=== PATIENT | female | born 1980 | race Two or more races ===

== ENCOUNTER 2019-07-06 09:27 | Inpatient (IN) | payer MEDICAID ==
[~2019-07-06] VITALS: Ht 147.3 cm; Wt 59.9 kg
[2019-07-06] MEDS ORDERED: Omnipaque-300 100ml vial INJ PRN (09:45)
[2019-07-06] MEDS ORDERED: Morphine Sulfate 4mg/ml Inj (IV USE ONLY) IVP ONE ×3 (09:45→16:15)
[2019-07-06 09:56] VITALS: BP 132/76
--- NOTE | 2019-07-06 10:02 | Emergency Room Report ---
History of Present Illness General Chief Complaint: Abdominal Pain Source: Patient Present Illness HPI 38-year-old female presents the ED for evaluation of abdominal pain. Patient notes pain as mid abdomen, sharp, 10 out of 10, nonradiating. Notes multiple episodes of vomiting. Denies fevers or chills. Denies chest pain. Notes history of kidney stones. Denies dysuria or hematuria. Denies flank pain. No other aggravating relieving factors. Denies any other associated symptoms Allergies: Coded Allergies: No Known Allergies (Unverified , 07/06/19) COVID-19 Screening Contact w/high risk pt: No Recent Travel to affected area: No Experienced COVID-19 symptoms?: No Patient History Past Medical History: none Past Surgical History: none Pertinent Family History: none Social History: Denies: smoking, alcohol use, drug use Last Menstrual Period: 06/29/19 Now: No Immunizations: UTD Reviewed Nursing Documentation: PMH: Agreed; PSxH: Agreed Nursing Documentation-PMH Past Medical History: No History, Except For Hx COPD: No - KIDNEY STONES Review of Systems All Other Systems: negative except mentioned in HPI Physical Exam Vital Signs Date Time Temp Pulse Resp B/P (MAP) Pulse Ox O2 Delivery O2 Flow Rate FiO2 07/06/19 09:31 99.0 79 19 135/83 (100) 100 Room Air 07/06/19 09:56 100 Sp02 EP Interpretation: reviewed, normal General Appearance: alert, GCS 15, non-toxic, moderate distress Head: normocephalic, atraumatic Eyes: bilateral eye normal inspection, bilateral eye PERRL ENT: hearing grossly normal, normal pharynx, no angioedema, normal voice Neck: full range of motion, supple/symm/no masses Respiratory: chest non-tender, lungs clear, normal breath sounds, speaking full sentences Cardiovascular #1: regular rate, rhythm, no edema Cardiovascular #2: 2+ carotid (R), 2+ carotid (L), 2+ radial (R), 2+ radial (L) , 2+ dorsalis pedis (R), 2+ dorsalis pedis (L) Gastrointestinal: normal bowel sounds, soft, non-distended, no rebound, tenderness Rectal: deferred Genitourinary: normal inspection, no CVA tenderness Musculoskeletal: back normal, normal range of motion, gait/station normal, non- tender Neurologic: alert, motor strength/tone normal, oriented x3, sensory intact, responsive, speech normal Psychiatric: judgement/insight normal, memory normal, mood/affect normal, no suicidal/homicidal ideation Reflexes: 3+ bicep (R), 3+ bicep (L), 3+ tricep (R), 3+ tricep (L), 3+ knee (R) , 3+ knee (L) Skin: no rash Lymphatic: no adenopathy Medical Decision Making Diagnostic Impression: Primary Impression: Gallstone pancreatitis ER Course Hospital Course 38-year-old female presents to ED with abdominal pain, vomiting Differential diagnoses include: BPH, cystitis, pyelonephritis, kidney stone Clinical course Patient placed on stretcher. potline monitor. After initial history and physical I ordered labs, IV fluids, UA, pain medication and CT scan Labs - no leukocytosis, Hb/Hct stable. electrolytes ok. Lipase > 2000, UA + bacteria CT abdomen and pelvis - pancreatitis with distended gallbladder with stones Given IV fluids. Given pain meds. Given antibiotics. GI and surgery consulted Case discussed with Dr. Montero and he agreed to accept the patient to his service for further care and support I feel this is a highly complex case requiring extensive working including EKG/ Rhythm strip, Xray/CT/US, Blood/urine lab work, repeat exams while in ED, and administration of strong opiates/narcotics for pain control, admission to hospital or close patient follow up. Diagnosis - gallstone pancreatitis Patient admitted to floor in serious condition Labs Test 07/06/19 09:30 07/06/19 09:55 White Blood Count 23.6 K/UL (4.8-10.8) Red Blood Count 4.62 M/UL (4.20-5.40) Hemoglobin 14.5 G/DL (12.0-16.0) Hematocrit 40.8 % (37.0-47.0) Mean Corpuscular Volume 88 FL (80-99) Mean Corpuscular Hemoglobin 31.3 PG (27.0-31.0) Mean Corpuscular Hemoglobin Concent 35.4 G/DL (32.0-36.0) Red Cell Distribution Width 11.0 % (11.6-14.8) Platelet Count 221 K/UL (150-450) Mean Platelet Volume 7.2 FL (6.5-10.1) Neutrophils (%) (Auto) % (45.0-75.0) Lymphocytes (%) (Auto) % (20.0-45.0) Monocytes (%) (Auto) % (1.0-10.0) Eosinophils (%) (Auto) % (0.0-3.0) Basophils (%) (Auto) % (0.0-2.0) Differential Total Cells Counted 100 Neutrophils % (Manual) 75 % (45-75) Lymphocytes % (Manual) 20 % (20-45) Monocytes % (Manual) 5 % (1-10) Eosinophils % (Manual) 0 % (0-3) Basophils % (Manual) 0 % (0-2) Band Neutrophils 0 % (0-8) Platelet Estimate Adequate Platelet Morphology Normal Red Blood Cell Morphology Normal Sodium Level 140 MMOL/L (136-145) Potassium Level 2.9 MMOL/L (3.5-5.1) Chloride Level 104 MMOL/L (98-107) Carbon Dioxide Level 24 MMOL/L (21-32) Anion Gap 12 mmol/L (5-15) Blood Urea Nitrogen 12 mg/dL (7-18) Creatinine 0.7 MG/DL (0.55-1.30) Estimat Glomerular Filtration Rate > 60 mL/min (>60) Glucose Level 173 MG/DL (74-106) Calcium Level 8.9 MG/DL (8.5-10.1) Total Bilirubin 1.0 MG/DL (0.2-1.0) Aspartate Amino Transf (AST/SGOT) 109 U/L (15-37) Alanine Aminotransferase (ALT/SGPT) 83 U/L (12-78) Alkaline Phosphatase 96 U/L (46-116) Total Protein 8.4 G/DL (6.4-8.2) Albumin 4.2 G/DL (3.4-5.0) Globulin 4.2 g/dL Albumin/Globulin Ratio 1.0 (1.0-2.7) Lipase > 2000 U/L (73-393) Human Chorionic Gonadotropin, Qual Negative (NEGATIVE) Urine Color Yellow Urine Appearance Slightly cloudy Urine pH 5 (4.5-8.0) Urine Specific [place] 1.015 (1.005-1.035) Urine Protein 2+ (NEGATIVE) Urine Glucose (UA) Negative (NEGATIVE) Urine Ketones Negative (NEGATIVE) Urine Blood 5+ (NEGATIVE) Urine Nitrite Negative (NEGATIVE) Urine Bilirubin Negative (NEGATIVE) Urine Urobilinogen Normal MG/DL (0.0-1.0) Urine Leukocyte Esterase 1+ (NEGATIVE) Urine RBC Tntc /HPF (0 - 2) Urine WBC 5-10 /HPF (0 - 2) Urine Squamous Epithelial Cells Moderate /LPF (NONE/OCC) Urine Bacteria Many /HPF (NONE) Urine HCG, Qualitative Negative (NEGATIVE) CT/MRI/US Diagnostic Results CT/MRI/US Diagnostic Results : Imaging Test Ordered: CT A/P Impression COMPARISON: None FINDINGS: Lung bases: Lucency and scarring or atelectasis in the left lower lobe. ABDOMEN: Liver: Unremarkable. No mass. Gallbladder and bile ducts: Distended gallbladder with cholelithiasis. Further evaluation could be performed with ultrasound if clinically indicated. Biliary dilatation with stones in the common bile duct. Pancreas: Enlarged pancreas with prominent peripancreatic fluid, concerning for pancreatitis. Question gallstone pancreatitis. Please correlate with lipase levels. No fluid collection or pseudocyst. Spleen: Unremarkable. No splenomegaly. Adrenals: Unremarkable. No mass. Kidneys and ureters: Small hypodensity in the right kidney is too small to definitively characterize. No hydronephrosis or obstructing stone. Stomach and bowel: Portions of the colon are decompressed which limits evaluation. No obstruction. No mucosal thickening. PELVIS: Appendix: Normal appendix. Bladder: Unremarkable. No mass. Reproductive: Unremarkable as visualized. ABDOMEN and PELVIS: Intraperitoneal space: Unremarkable. No free air. No significant fluid collection. Bones/joints: No acute fracture. No dislocation. Soft tissues: Small to moderate fat-containing umbilical hernia. Vasculature: Unremarkable. No abdominal aortic aneurysm. Lymph nodes: Unremarkable. No enlarged lymph nodes. IMPRESSION: 1. Enlarged pancreas with prominent peripancreatic fluid, concerning for pancreatitis. Question gallstone pancreatitis. Please correlate with lipase levels. No fluid collection or pseudocyst. 2. Distended gallbladder with cholelithiasis. Further evaluation could be performed with ultrasound if clinically indicated. 3. Biliary dilatation with stones in the common bile duct. Last Vital Signs Date Time Temp Pulse Resp B/P (MAP) Pulse Ox O2 Delivery O2 Flow Rate FiO2 07/06/19 09:56 99.0 86 19 132/76 100 Room Air 07/06/19 09:56 100 Status: improved Disposition: ADMITTED INPATIENT Condition: Serious Scripts No Active Prescriptions or Reported Meds Calvin Delgadillo MD July 06, 2019 10:02
[2019-07-06 10:13] LABS: ANION GAP 12 mmol/L (5-15); BLOOD UREA NITROGEN 12 mg/dL (7-18); CALCIUM 8.9 MG/DL (8.5-10.1); CARBON DIOXIDE 24 MMOL/L (21-32); CHLORIDE 104 MMOL/L (98-107); CREATININE 0.7 MG/DL (0.55-1.30); POTASSIUM 2.9 MMOL/L (3.5-5.1); SODIUM 140 MMOL/L (136-145)
[2019-07-06 10:14] LABS: HEMATOCRIT 40.8 % (37.0-47.0); HEMOGLOBIN 14.5 G/DL (12.0-16.0); MEAN CORPUSCULAR VOLUME 88 FL (80-99); PLATELET COUNT 221 K/UL (150-450); RED BLOOD COUNT 4.62 M/UL (4.20-5.40)
[2019-07-06 10:23] LABS: ALANINE AMINOTRANSFERASE 83 U/L (12-78); ALBUMIN 4.2 G/DL (3.4-5.0); ALKALINE PHOSPHATASE 96 U/L (46-116); ASPARTATE AMINO TRANSFERASE 109 U/L (15-37)
[2019-07-06] MEDS ORDERED: NS w/KCl 40mEq 1,000 ML IV SCH (10:30)
[2019-07-06 10:51] LABS: BILIRUBIN, URINE NEGATIVE (NEGATIVE); GLUCOSE, URINE (UA) NEGATIVE (NEGATIVE); KETONES,URINE NEGATIVE (NEGATIVE); NITRITE,URINE NEGATIVE (NEGATIVE); PH,URINE 5 (4.5-8.0); PROTEIN,URINE 2+ (NEGATIVE); UROBILINOGEN,URINE NORMAL MG/DL (0.0-1.0)
[2019-07-06 10:52] LABS: APPEARANCE,URINE SLIGHTLY CLOUDY; COLOR,URINE YELLOW; LEUKOCYTE ESTERASE ,URINE 1+ (NEGATIVE)
[2019-07-06 11:03] LABS: WHITE BLOOD COUNT 23.6 K/UL (4.8-10.8)
[2019-07-06] MEDS ORDERED: cefTRIAXone 1 GM in NS 55 ML IVPB ONE (11:15)
[2019-07-06] MEDS ORDERED: Ketorolac 30mg Inj IV ONE (11:15)
--- NOTE | 2019-07-06 11:45 | Diagnostic Imaging Report ---
EXAM: CT Abdomen and Pelvis With Intravenous Contrast CLINICAL HISTORY: ABD PAIN TECHNIQUE: Axial computed tomography images of the abdomen and pelvis with intravenous contrast. CTDI is 3.9 mGy and DLP is 202.5 mGy-cm. One or more of the following dose reduction techniques were used: automated exposure control, adjustment of the mA and/or kV according to patient size, use of iterative reconstruction technique. COMPARISON: None FINDINGS: Lung bases: Lucency and scarring or atelectasis in the left lower lobe. ABDOMEN: Liver: Unremarkable. No mass. Gallbladder and bile ducts: Distended gallbladder with cholelithiasis. Further evaluation could be performed with ultrasound if clinically indicated. Biliary dilatation with stones in the common bile duct. Pancreas: Enlarged pancreas with prominent peripancreatic fluid, concerning for pancreatitis. Question gallstone pancreatitis. Please correlate with lipase levels. No fluid collection or pseudocyst. Spleen: Unremarkable. No splenomegaly. Adrenals: Unremarkable. No mass. Kidneys and ureters: Small hypodensity in the right kidney is too small to definitively characterize. No hydronephrosis or obstructing stone. Stomach and bowel: Portions of the colon are decompressed which limits evaluation. No obstruction. No mucosal thickening. PELVIS: Appendix: Normal appendix. Bladder: Unremarkable. No mass. Reproductive: Unremarkable as visualized. ABDOMEN and PELVIS: Intraperitoneal space: Unremarkable. No free air. No significant fluid collection. Bones/joints: No acute fracture. No dislocation. Soft tissues: Small to moderate fat-containing umbilical hernia. Vasculature: Unremarkable. No abdominal aortic aneurysm. Lymph nodes: Unremarkable. No enlarged lymph nodes. IMPRESSION: 1. Enlarged pancreas with prominent peripancreatic fluid, concerning for pancreatitis. Question gallstone pancreatitis. Please correlate with lipase levels. No fluid collection or pseudocyst. 2. Distended gallbladder with cholelithiasis. Further evaluation could be performed with ultrasound if clinically indicated. 3. Biliary dilatation with stones in the common bile duct.
[2019-07-06] MEDS ORDERED: Piperacillin/Tazobactam 3.375 GM in NS 110 ML IVPB ONE (12:15)
[2019-07-06 13:00] VITALS: BP 127/87
[2019-07-06 16:55] VITALS: BP 122/85
[2019-07-06] MEDS: Pantoprazole Inj IVP SCH (17:30)
[2019-07-06] MEDS: D5 1/2NS w/KCl 20mEq 1,000 ML IV SCH ×2 (17:30→22:35)
[2019-07-06] MEDS ORDERED: HYDROmorphone 1mg/ml Carpuject IVP PRN ×2 (17:30→21:30)
[2019-07-06] MEDS ORDERED: Acetaminophen 650 MG SUPP RECTAL PRN (17:30)
[2019-07-06 20:00] VITALS: BP 118/80
[2019-07-06] MEDS: Piperacillin/Tazobactam 3.375 GM in NS 110 ML IVPB SCH (20:45)
[2019-07-06] MEDS ORDERED: D5 1/2NS 1,000 ML IV SCH (21:15)
[2019-07-06] MEDS ORDERED: Morphine Sulfate 2mg/ml Inj(IV/IM USE ONLY) IVP PRN (21:15)
--- NOTE | 2019-07-06 21:44 | Consultation ---
DATE OF CONSULTATION: 07/06/2019 REASON FOR CONSULTATION: Abdominal pain. REQUESTING PHYSICIAN: ER physician. HISTORY OF PRESENT ILLNESS: This is a 38-year-old female who presented to emergency room complaining of about 8 days of abdominal pain. She stated that pain is located at the epigastrium. Initially, it was at epigastrium and even right upper quadrant, but it has moved more to the left upper quadrant. This pain has been associated with nausea and vomiting. She denied any fever, cough, dysuria, or frequency. She stated that she has been having upper abdominal pain for about 4 years. She denies any history of jaundice. She denies any history of alcohol abuse. PAST MEDICAL HISTORY: She denied allergies, asthma, diabetes, hypertension, or cardiac or renal diseases. SURGERIES: None. MEDICATIONS: None. SOCIAL HISTORY: The patient is a 38-year-old female who is , mother of 2 children. 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 Denies smoking or drinking. REVIEW OF SYSTEMS: Noncontributory. PHYSICAL EXAMINATION: GENERAL: The patient appeared to be a well-developed, well-nourished 38-year-old female, lying on the gurney, complaining of abdominal pain. HEENT: Head is normocephalic and atraumatic. Eyes, pupils are equal, round, and reactive to light. 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 Mouth is clear. NECK: There is no palpable thyromegaly or adenopathy. CHEST: Clear to auscultation and percussion. HEART: There is no gallop or murmur. S1 and S2 are within normal limits. ABDOMEN: Soft and flat with tenderness allover, which is more pronounced at the upper abdomen, especially at the left upper quadrant. There is no rigidity. Bowel sounds are present, and there is no palpable organomegaly. GENITALIA: Deferred. EXTREMITIES: Within normal limits. LABORATORY DATA: CBC has shown a WBC of 23,000 with mild left shift. Chemistry has shown lipase over 2000. A CAT scan of the abdomen has shown cholelithiasis and pancreatitis. Besides, it has been reported that the patient had stones in the common bile duct. ASSESSMENT: Gall stone pancreatitis. RECOMMENDATION: At this time, the patient required to be admitted. NPO, on IV fluids. She requires a GI consultation and ERCP with removal of the common bile duct stones, and after the lipase and amylase return to normal and the common bile duct has been cleared, she will require to have a laparoscopy cholecystectomy. This has been explained to the patient. She understood. Rio Mcmillan M.D. DR: MOE JOB#: [id number] CC:
[2019-07-06] MEDS: HYDROmorphone 1mg/ml Carpuject IVP PRN (22:02)
[2019-07-07] VITALS: BP 128/79
[2019-07-07] MEDS: HYDROmorphone 1mg/ml Carpuject IVP PRN ×5 (02:32→20:34)
[2019-07-07 04:00] VITALS: BP 105/68
[2019-07-07] MEDS: Piperacillin/Tazobactam 3.375 GM in NS 110 ML IVPB SCH ×3 (04:27→20:33)
[2019-07-07 05:40] LABS: BASOPHILS % (AUTO) 0.2 % (0.0-2.0); HEMATOCRIT 37.5 % (37.0-47.0); HEMOGLOBIN 13.2 G/DL (12.0-16.0); LYMPHOCYTES % (AUTO) 12.7 % (20.0-45.0); MEAN CORPUSCULAR VOLUME 89 FL (80-99); MONOCYTES % (AUTO) 7.2 % (1.0-10.0); NEUTROPHILS % (AUTO) 79.9 % (45.0-75.0); PLATELET COUNT 182 K/UL (150-450); RED BLOOD COUNT 4.22 M/UL (4.20-5.40); RED CELL DISTRIBUTION WIDTH 11.6 % (11.6-14.8); WHITE BLOOD COUNT 12.7 K/UL (4.8-10.8)
[2019-07-07 05:53] LABS: ALANINE AMINOTRANSFERASE 186 U/L (12-78); ALBUMIN 3.1 G/DL (3.4-5.0); ALBUMIN/GLOBULIN RATIO 0.8 (1.0-2.7); ALKALINE PHOSPHATASE 84 U/L (46-116); ANION GAP 10 mmol/L (5-15); ASPARTATE AMINO TRANSFERASE 113 U/L (15-37); BLOOD UREA NITROGEN 9 mg/dL (7-18); CALCIUM 7.6 MG/DL (8.5-10.1); CARBON DIOXIDE 24 MMOL/L (21-32); CHLORIDE 110 MMOL/L (98-107); CREATININE 0.7 MG/DL (0.55-1.30); POTASSIUM 4.1 MMOL/L (3.5-5.1); SODIUM 144 MMOL/L (136-145)
[2019-07-07 06:13] LABS: AMYLASE 513 U/L (25-115)
--- NOTE | 2019-07-07 07:33 | General Progress Note ---
Assessment/Plan Assessment/Plan: gallstone pancreatitis CBD stones based on CT npo ivf pain control abd us ERCP in am surg consult Subjective ROS Limited/Unobtainable: Yes Allergies: Coded Allergies: No Known Allergies (Unverified , 07/06/19) Objective Last 24 Hour Vital Signs Date Time Temp Pulse Resp B/P (MAP) Pulse Ox O2 Delivery O2 Flow Rate FiO2 07/07/19 04:00 98.2 70 18 105/68 (80) 100 07/07/19 03:02 98.0 07/07/19 00:00 98.0 71 18 128/79 (95) 95 07/06/19 21:00 Room Air 07/06/19 20:00 98.0 71 18 118/80 (93) 95 07/06/19 18:18 Room Air 07/06/19 17:35 98.6 78 18 138/78 99 Room Air 07/06/19 16:55 99.0 81 16 122/85 98 Room Air 07/06/19 16:46 99.0 07/06/19 13:00 99.0 82 18 127/87 99 Room Air 07/06/19 11:38 99.0 07/06/19 11:38 99.0 07/06/19 10:15 99.0 07/06/19 09:56 99.0 86 19 132/76 100 Room Air 07/06/19 09:56 86 19 Room Air 100 07/06/19 09:31 99.0 79 19 135/83 (100) 100 Room Air Intake and Output 07/06/19 07/07/19 19:00 07:00 Intake Total 0 ml Output Total 10 ml Balance 0 ml -10 ml Intake Oral 0 ml Output Emesis 10 ml # Voids 4 Laboratory Tests 07/06/19 09:30: White Blood Count 23.6*H, Red Blood Count 4.62, Hemoglobin 14.5, Hematocrit 40.8 , Mean Corpuscular Volume 88, Mean Corpuscular Hemoglobin 31.3H, Mean Corpuscular Hemoglobin Concent 35.4, Red Cell Distribution Width 11.0L, Platelet Count 221, Mean Platelet Volume 7.2, Neutrophils (%) (Auto) , Lymphocytes (%) (Auto) , Monocytes (%) (Auto) , Eosinophils (%) (Auto) , Basophils (%) (Auto) , Differential Total Cells Counted 100, Neutrophils % ( Manual) 75, Lymphocytes % (Manual) 20, Monocytes % (Manual) 5, Eosinophils % ( Manual) 0, Basophils % (Manual) 0, Band Neutrophils 0, Platelet Estimate Adequate, Platelet Morphology Normal, Red Blood Cell Morphology Normal, Sodium Level 140, Potassium Level 2.9L, Chloride Level 104, Carbon Dioxide Level 24, Anion Gap 12, Blood Urea Nitrogen 12, Creatinine 0.7, Estimat Glomerular Filtration Rate > 60, Glucose Level 173H, Calcium Level 8.9, Total Bilirubin 1.0 , Aspartate Amino Transf (AST/SGOT) 109H, Alanine Aminotransferase (ALT/SGPT) 83H, Alkaline Phosphatase 96, Total Protein 8.4H, Albumin 4.2, Globulin 4.2, Albumin/Globulin Ratio 1.0, Lipase > 2000H, Human Chorionic Gonadotropin, Qual Negative 07/06/19 09:55: Urine Color Yellow, Urine Appearance Slightly cloudy, Urine pH 5, Urine Specific [place] 1.015, Urine Protein 2+H, Urine Glucose (UA) Negative, Urine Ketones Negative, Urine Blood 5+H, Urine Nitrite Negative, Urine Bilirubin Negative, Urine Urobilinogen Normal, Urine Leukocyte Esterase 1+H, Urine RBC TntcH, Urine WBC 5-10H, Urine Squamous Epithelial Cells ModerateH, Urine Bacteria ManyH, Urine HCG, Qualitative Negative 07/07/19 04:45: White Blood Count 12.7H, Red Blood Count 4.22, Hemoglobin 13.2, Hematocrit 37.5 , Mean Corpuscular Volume 89, Mean Corpuscular Hemoglobin 31.2H, Mean Corpuscular Hemoglobin Concent 35.2, Red Cell Distribution Width 11.6, Platelet Count 182, Mean Platelet Volume 7.8, Neutrophils (%) (Auto) 79.9H, Lymphocytes ( %) (Auto) 12.7L, Monocytes (%) (Auto) 7.2, Eosinophils (%) (Auto) 0.0, Basophils (%) (Auto) 0.2, Sodium Level 144, Potassium Level 4.1, Chloride Level 110H, Carbon Dioxide Level 24, Anion Gap 10, Blood Urea Nitrogen 9, Creatinine 0.7, Estimat Glomerular Filtration Rate > 60, Glucose Level 140H, Calcium Level 7.6L, Total Bilirubin 1.0, Aspartate Amino Transf (AST/SGOT) 113H, Alanine Aminotransferase (ALT/SGPT) 186H, Alkaline Phosphatase 84, Total Protein 6.9, Albumin 3.1L, Globulin 3.8, Albumin/Globulin Ratio 0.8L, Amylase Level 513*H Height (Feet): 4 Height (Inches): 10.00 Weight (Pounds): 117 General Appearance: alert EENT: normal ENT inspection Neck: normal alignment Cardiovascular: normal rate Respiratory/Chest: decreased breath sounds Abdomen: normal bowel sounds, non tender, soft Extremities: non-tender Jus Cancino MD July 07, 2019 07:33
[2019-07-07] MEDS: D5 1/2NS w/KCl 20mEq 1,000 ML IV SCH ×2 (07:55→16:13)
[2019-07-07 08:00] VITALS: BP 152/70
[2019-07-07] MEDS: Pantoprazole Inj IVP SCH (08:16)
--- NOTE | 2019-07-07 10:12 | General Surgery Progress Note ---
General Surgery-Progress Note Subjective Symptoms: improved Objective Last 24 Hour Vital Signs Date Time Temp Pulse Resp B/P (MAP) Pulse Ox O2 Delivery O2 Flow Rate FiO2 07/07/19 08:34 Room Air 07/07/19 08:00 98.9 74 18 152/70 (97) 97 07/07/19 04:00 98.2 70 18 105/68 (80) 100 07/07/19 03:02 98.0 07/07/19 00:00 98.0 71 18 128/79 (95) 95 07/06/19 21:00 Room Air 07/06/19 20:00 98.0 71 18 118/80 (93) 95 07/06/19 18:18 Room Air 07/06/19 17:35 98.6 78 18 138/78 99 Room Air 07/06/19 16:55 99.0 81 16 122/85 98 Room Air 07/06/19 16:46 99.0 07/06/19 13:00 99.0 82 18 127/87 99 Room Air 07/06/19 11:38 99.0 07/06/19 11:38 99.0 07/06/19 10:15 99.0 I&O Intake and Output 07/06/19 07/07/19 19:00 07:00 Intake Total 0 ml Output Total 10 ml Balance 0 ml -10 ml Intake Oral 0 ml Output Emesis 10 ml # Voids 4 Respiratory: clear Abdomen: soft, flat, tenderness, present bowel sounds Extremities: no tenderness Laboratory Tests Test 07/07/19 04:45 White Blood Count 12.7 K/UL (4.8-10.8) H Red Blood Count 4.22 M/UL (4.20-5.40) Hemoglobin 13.2 G/DL (12.0-16.0) Hematocrit 37.5 % (37.0-47.0) Mean Corpuscular Volume 89 FL (80-99) Mean Corpuscular Hemoglobin 31.2 PG (27.0-31.0) H Mean Corpuscular Hemoglobin Concent 35.2 G/DL (32.0-36.0) Red Cell Distribution Width 11.6 % (11.6-14.8) Platelet Count 182 K/UL (150-450) Mean Platelet Volume 7.8 FL (6.5-10.1) Neutrophils (%) (Auto) 79.9 % (45.0-75.0) H Lymphocytes (%) (Auto) 12.7 % (20.0-45.0) L Monocytes (%) (Auto) 7.2 % (1.0-10.0) Eosinophils (%) (Auto) 0.0 % (0.0-3.0) Basophils (%) (Auto) 0.2 % (0.0-2.0) Sodium Level 144 MMOL/L (136-145) Potassium Level 4.1 MMOL/L (3.5-5.1) Chloride Level 110 MMOL/L (98-107) H Carbon Dioxide Level 24 MMOL/L (21-32) Anion Gap 10 mmol/L (5-15) Blood Urea Nitrogen 9 mg/dL (7-18) Creatinine 0.7 MG/DL (0.55-1.30) Estimat Glomerular Filtration Rate > 60 mL/min (>60) Glucose Level 140 MG/DL (74-106) H Calcium Level 7.6 MG/DL (8.5-10.1) L Total Bilirubin 1.0 MG/DL (0.2-1.0) Aspartate Amino Transf (AST/SGOT) 113 U/L (15-37) H Alanine Aminotransferase (ALT/SGPT) 186 U/L (12-78) H Alkaline Phosphatase 84 U/L (46-116) Total Protein 6.9 G/DL (6.4-8.2) Albumin 3.1 G/DL (3.4-5.0) L Globulin 3.8 g/dL Albumin/Globulin Ratio 0.8 (1.0-2.7) L Amylase Level 513 U/L (25-115) *H Assessment Additional Comments gallstone pancreatitis Plan Additional Comments continue npo ERCP in AM possible lap belinda on monday Rio Mcmillan MD July 07, 2019 10:12
--- NOTE | 2019-07-07 11:17 | Diagnostic Imaging Report ---
EXAM: US Abdomen Complete CLINICAL HISTORY: ABD PAIN TECHNIQUE: Real-time ultrasound of the abdomen with image documentation. COMPARISON: CT abdomen/pelvis on 07/06/2019 FINDINGS: Liver: Unremarkable. No mass. No intrahepatic bile duct dilation. Gallbladder: Cholelithiasis within a distended gallbladder. Mild gallbladder wall thickening and pericholecystic edema. Common bile duct: Dilated common bile duct measuring 10.3 mm. Stone in the common bile duct measuring 1 cm. Pancreas: Pancreas is enlarged with peripancreatic fluid, concerning for acute pancreatitis. Kidneys: Right kidney measures 11.9 cm in length. No hydronephrosis or stone. Spleen: Unremarkable. No splenomegaly. Aorta: Visualized portions of the aorta are unremarkable. Inferior vena cava: Visualized portions of the IVC are unremarkable. Other vasculature: Patent main portal vein with normal direction of flow. Free fluid: Ascites in the right upper quadrant. IMPRESSION: 1. Pancreas is enlarged with peripancreatic fluid, concerning for acute pancreatitis. 2. Cholelithiasis within a distended gallbladder. Mild gallbladder wall thickening and pericholecystic edema. Findings are concerning for acute cholecystitis. 3. Dilated common bile duct measuring 10.3 mm. Stone in the common bile duct measuring 1 cm. 4. Ascites in the right upper quadrant.
[2019-07-07 11:54] VITALS: BP 117/77
--- NOTE | 2019-07-07 12:51 | Consultation ---
History of Present Illness General Date patient seen: July 07, 2019 Chief Complaint: Abdominal Pain Present Illness HPI 38 y/o F with hx of nephrolithiasis presented to ED on 07/05 with 8 days of abd pain, initially was epigastric and RUQ and move to LUQ; pain described as sharp , 10/10 intensity, non radiating. Associated symptoms: nausea and vomiting. Denied fever, cough, dysuria, frequency, chest pain, hematuria. Allergies: Coded Allergies: No Known Allergies (Unverified , 07/06/19) Medication History No Active Prescriptions or Reported Meds Patient History Healthcare decision maker Resuscitation status Advanced Directive on File Patient History Narrative Pmhx: as above Shx: The patient is a 38-year-old female who is , mother of 2 children. 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 Denies smoking or drinking. Fhmx: non contributory Review of Systems All Other Systems: negative except mentioned in HPI Physical Exam Physical Exam Narrative GENERAL: The patient appeared to be a well-developed, well-nourished HEENT: Head is normocephalic and atraumatic. Eyes, pupils are equal, round, and reactive to light. 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 Mouth is clear. NECK: There is no palpable thyromegaly or adenopathy. CHEST: Clear to auscultation and percussion. HEART: There is no gallop or murmur. S1 and S2 are within normal limits. ABDOMEN: Soft and flat with tenderness allover, which is more pronounced at the upper abdomen, especially at the left upper quadrant. There is no rigidity. Bowel sounds are present, and there is no palpable organomegaly. EXTREMITIES: Within normal limits. Last 24 Hour Vital Signs Date Time Temp Pulse Resp B/P (MAP) Pulse Ox O2 Delivery O2 Flow Rate FiO2 07/07/19 11:54 98.8 83 18 117/77 (90) 96 07/07/19 08:34 Room Air 07/07/19 08:00 98.9 74 18 152/70 (97) 97 07/07/19 04:00 98.2 70 18 105/68 (80) 100 07/07/19 03:02 98.0 07/07/19 00:00 98.0 71 18 128/79 (95) 95 07/06/19 21:00 Room Air 07/06/19 20:00 98.0 71 18 118/80 (93) 95 07/06/19 18:18 Room Air 07/06/19 17:35 98.6 78 18 138/78 99 Room Air 07/06/19 16:55 99.0 81 16 122/85 98 Room Air 07/06/19 16:46 99.0 07/06/19 13:00 99.0 82 18 127/87 99 Room Air Intake and Output 07/06/19 07/07/19 19:00 07:00 Intake Total 0 ml Output Total 10 ml Balance 0 ml -10 ml Intake Oral 0 ml Output Emesis 10 ml # Voids 4 Laboratory Tests Test 07/07/19 04:45 White Blood Count 12.7 K/UL (4.8-10.8) H Red Blood Count 4.22 M/UL (4.20-5.40) Hemoglobin 13.2 G/DL (12.0-16.0) Hematocrit 37.5 % (37.0-47.0) Mean Corpuscular Volume 89 FL (80-99) Mean Corpuscular Hemoglobin 31.2 PG (27.0-31.0) H Mean Corpuscular Hemoglobin Concent 35.2 G/DL (32.0-36.0) Red Cell Distribution Width 11.6 % (11.6-14.8) Platelet Count 182 K/UL (150-450) Mean Platelet Volume 7.8 FL (6.5-10.1) Neutrophils (%) (Auto) 79.9 % (45.0-75.0) H Lymphocytes (%) (Auto) 12.7 % (20.0-45.0) L Monocytes (%) (Auto) 7.2 % (1.0-10.0) Eosinophils (%) (Auto) 0.0 % (0.0-3.0) Basophils (%) (Auto) 0.2 % (0.0-2.0) Sodium Level 144 MMOL/L (136-145) Potassium Level 4.1 MMOL/L (3.5-5.1) Chloride Level 110 MMOL/L (98-107) H Carbon Dioxide Level 24 MMOL/L (21-32) Anion Gap 10 mmol/L (5-15) Blood Urea Nitrogen 9 mg/dL (7-18) Creatinine 0.7 MG/DL (0.55-1.30) Estimat Glomerular Filtration Rate > 60 mL/min (>60) Glucose Level 140 MG/DL (74-106) H Calcium Level 7.6 MG/DL (8.5-10.1) L Total Bilirubin 1.0 MG/DL (0.2-1.0) Aspartate Amino Transf (AST/SGOT) 113 U/L (15-37) H Alanine Aminotransferase (ALT/SGPT) 186 U/L (12-78) H Alkaline Phosphatase 84 U/L (46-116) Total Protein 6.9 G/DL (6.4-8.2) Albumin 3.1 G/DL (3.4-5.0) L Globulin 3.8 g/dL Albumin/Globulin Ratio 0.8 (1.0-2.7) L Amylase Level 513 U/L (25-115) *H Height (Feet): 4 Height (Inches): 10.00 Weight (Pounds): 117 Medications Current Medications Medications (Trade) Dose Ordered Sig/Najma Route PRN Reason Start Time Stop Time Status Last Admin Dose Admin Acetaminophen (Tylenol) 650 mg Q4H PRN RECTAL Mild Pain (Pain Scale 1-3) 07/06/19 17:30 08/05/19 17:29 Dextrose/ Electrolytes 1,000 ml @ 125 mls/hr Q8H IV 07/07/19 08:00 08/06/19 07:59 07/07/19 07:55 Hydromorphone HCl (Dilaudid) 1 mg Q4H PRN IVP For Pain 07/06/19 21:30 07/13/19 17:29 07/07/19 12:15 Ondansetron HCl (Zofran) 4 mg Q4H PRN IVP Nausea & Vomiting 07/06/19 21:00 08/05/19 20:59 07/06/19 20:58 Pantoprazole (Protonix) 40 mg DAILY IVP 07/06/19 17:30 08/05/19 17:29 07/07/19 08:16 Piperacillin Sod/ Tazobactam Sod 3.375 gm/Sodium Chloride 110 ml @ 27.5 mls/hr Q8H IVPB 07/06/19 20:30 07/13/19 20:29 07/07/19 12:14 Assessment/Plan Assessment/Plan: Abx: Zosyn 5/2- Ceftriaxone x1 5/2 Assessment: Gallstone pancreatitis Acute cholecystitis Choledocholithiasis -CT abd/p 1. Enlarged pancreas with prominent peripancreatic fluid, concerning for pancreatitis. Question gallstone pancreatitis. Please correlate with lipase levels. No fluid collection or pseudocyst.Distended gallbladder with cholelithiasis. Further evaluation could be performed with ultrasound if clinically indicated. Biliary dilatation with stones in the common bile duct. -Abd US: Pancreas is enlarged with peripancreatic fluid, concerning for acute pancreatitis. Cholelithiasis within a distended gallbladder. Mild gallbladder wall thickening and pericholecystic edema. Findings are concerning for acute cholecystitis. Dilated common bile duct measuring 10.3 mm. Stone in the common bile duct measuring 1 cm. Ascites in the right upper quadrant. Afebrile Leukocytosis, improving -5/2 u/a wbc 5-10, nit neg, leuk +1; Ucx p Elevated LFTs, worsening nephrolithiasis Plan: -Continue empiric Zosyn #2 -f/u cx -Monitor CBC/CMP, temperatures -GI and Sx f/u -aspiration precautions Thank you for consulting [facility]. Will continue to follow along with you. Discussed with PREMA. Michelle Sr M.D. July 07, 2019 12:51
[2019-07-07 16:00] VITALS: BP 105/76
--- NOTE | 2019-07-07 16:00 | History and Physical Report ---
DATE OF ADMISSION: 07/06/2019 DATE AND TIME SEEN: 07/07/2019 at 9 a.m. CONSULTANTS: 1. Jus Cancino M.D. 2. Rio Mcmillan M.D. CHIEF COMPLAINT: Abdominal pain, nausea, vomiting, pancreatitis, gallstone. BRIEF HISTORY: This is a 38-year-old female who lives at home presents with 7 days increased abdominal pain, yesterday became quite excruciating, slight nausea, vomiting, came to [place] ER, diagnosed with gallstone pancreatitis, and admitted to medical floor. Currently, calm in bed, getting ultrasound. Pain in the abdomen about 6/10. No complaint. REVIEW OF SYSTEMS: No chest pain. No shortness of breath. Slight nausea, vomiting. No diarrhea. PAST MEDICAL HISTORY: Nothing. PAST SURGICAL HISTORY: Nothing. MEDICATIONS: Include hydromorphone, Zosyn, pantoprazole, Tylenol, morphine, potassium, famotidine. ALLERGIES: Denies. SOCIAL HISTORY: No smoking. No alcohol. No intravenous drug abuse. FAMILY HISTORY: Noncontributory. PHYSICAL EXAMINATION: GENERAL: Calm in bed, oriented x3, no acute distress. VITAL SIGNS: Temperature is 98 degrees, pulse 74, respirations 18, blood pressure 152/70. CARDIOVASCULAR: Distant without murmur. LUNGS: Distant, clear. ABDOMEN: Bowel sound positive. Slightly tender. No guarding. No rigidity. No rebound. EXTREMITIES: No cyanosis, clubbing, edema. NEUROLOGIC: Patient moves all extremities, slightly weak. LABORATORY AND DIAGNOSTIC DATA: Labs at this time show white count 12.7, hemoglobin and hematocrit 13/37, platelets 182. Chloride 110, glucose 140. AST, ALT 113/186. Albumin 3.1. Amylase is 513. Lipase is greater in 1999. Urinalysis showed 2+ protein, 5+ blood, 1+ leukocyte esterase. ASSESSMENT: 1. Gallstone pancreatitis. 2. Malnutrition. 3. UTI. PLAN: 1. Antibiotics per Infectious Disease. 2. NPO. 3. IV fluids. 4. Dietary followup. 5. Pain control. 6. Possible Surgery. 7. GI followup. 8. We will add ID Dr. Enriqueta rehman. Anderson Montero D.O. DR: JOSE JOB#: [id number] CC:
[2019-07-07 20:00] VITALS: BP 113/72
[2019-07-08] VITALS (12 sets, daily range): BP systolic 103–137; BP diastolic 70–88
[2019-07-08] MEDS: HYDROmorphone 1mg/ml Carpuject IVP PRN ×5 (01:20→20:09)
[2019-07-08] MEDS: Piperacillin/Tazobactam 3.375 GM in NS 110 ML IVPB SCH ×3 (03:52→20:09)
[2019-07-08] MEDS: D5 1/2NS w/KCl 20mEq 1,000 ML IV SCH ×3 (03:53→17:23)
[2019-07-08 06:34] LABS: BASOPHILS % (AUTO) 0.4 % (0.0-2.0); EOSINOPHILS % (AUTO) 0.6 % (0.0-3.0); HEMATOCRIT 31.6 % (37.0-47.0); HEMOGLOBIN 11.4 G/DL (12.0-16.0); LYMPHOCYTES % (AUTO) 18.8 % (20.0-45.0); MEAN CORPUSCULAR VOLUME 89 FL (80-99); MONOCYTES % (AUTO) 9.1 % (1.0-10.0); NEUTROPHILS % (AUTO) 71.1 % (45.0-75.0); PLATELET COUNT 140 K/UL (150-450); RED BLOOD COUNT 3.55 M/UL (4.20-5.40); WHITE BLOOD COUNT 11.6 K/UL (4.8-10.8)
[2019-07-08 07:01] LABS: ALANINE AMINOTRANSFERASE 117 U/L (12-78); ALBUMIN 2.8 G/DL (3.4-5.0); ALBUMIN/GLOBULIN RATIO 0.8 (1.0-2.7); ALKALINE PHOSPHATASE 71 U/L (46-116); AMYLASE 325 U/L (25-115); ANION GAP 3 mmol/L (5-15); ASPARTATE AMINO TRANSFERASE 41 U/L (15-37); BILIRUBIN,TOTAL 0.9 MG/DL (0.2-1.0); BLOOD UREA NITROGEN 3 mg/dL (7-18); CALCIUM 8.1 MG/DL (8.5-10.1); CARBON DIOXIDE 29 MMOL/L (21-32); CHLORIDE 105 MMOL/L (98-107); CREATININE 0.5 MG/DL (0.55-1.30); POTASSIUM 3.9 MMOL/L (3.5-5.1); SODIUM 137 MMOL/L (136-145)
[2019-07-08] MEDS ORDERED: Iothalamate Meglumine 60% 30ML INJ ONE ×2 (07:55→09:22)
[2019-07-08] MEDS ORDERED: fentaNYL 100 mcg/2 mL IV ONE (08:44)
[2019-07-08] MEDS ORDERED: Midazolam 2mg/2ml Inj ONE (08:44)
--- NOTE | 2019-07-08 08:55 | Anethesia Preoperative Eval ---
Anesthesia Pre-op PMH/ROS General Date of Evaluation: July 08, 2019 Time of Evaluation: 09:00 Anesthesiologist: yuval ASA Score: ASA 2 Mallampati Score Class I : Soft palate, uvula, fauces, pillars visible Class II: Soft palate, uvula, fauces visible Class III: Soft palate, base of uvula visible Class IV: Only hard plate visible Mallampati Classification: Class II Surgeon: Barak Diagnosis: gallstones Surgical Procedure: ercp Anesthesia History: none Family History: no anesthesia problems Allergies: Coded Allergies: No Known Allergies (Unverified , 07/06/19) Medications: see eMAR Patient NPO?: Yes NPO Date: July 08, 2019 NPO Time: 0000 Past Medical History Cardiovascular: Denies: HTN, CAD, [place], valve dz, arrhythmia, other Pulmonary: Denies: asthma, COPD, BECCA, other Gastrointestinal/Genitourinary: Denies: GERD, CRI, ESRD, other Neurologic/Psychiatric: Denies: dementia, CVA, depression/anxiety, TIA, other Endocrine: Denies: DM, hypothyroidism, steroids, other HEENT: Denies: cataract (L), cataract (R), glaucoma, [place] (L), [place] (R), other Hematology/Immune: Denies: anemia, DVT, bleeding disorder, other Musculoskeletal/Integumentary: Denies: OA, RA, DJD, DDD, edema, other PMH Narrative: pancreatitis Anesthesia Pre-op Phys. Exam Physician Exam Last Vital Signs Date Time Temp Pulse Resp B/P (MAP) Pulse Ox O2 Delivery O2 Flow Rate FiO2 07/08/19 04:00 99.4 89 18 103/70 (81) 95 07/07/19 21:00 Room Air 07/06/19 09:56 100 Constitutional: NAD Neurologic: CN 2-12 intact Cardiovascular: RRR Respiratory: CTA Gastrointestinal: S/NT/ND Airway Exam Mallampati Classification 2 Mallampati Score: Class II MO: full ROM: full Dentures: no upper, no lower Anesthesia Pre-op A/P Labs Hematology Test 07/08/19 05:00 White Blood Count 11.6 K/UL (4.8-10.8) H Red Blood Count 3.55 M/UL (4.20-5.40) L Hemoglobin 11.4 G/DL (12.0-16.0) L Hematocrit 31.6 % (37.0-47.0) L Mean Corpuscular Volume 89 FL (80-99) Mean Corpuscular Hemoglobin 32.0 PG (27.0-31.0) H Mean Corpuscular Hemoglobin Concent 35.9 G/DL (32.0-36.0) Red Cell Distribution Width 11.0 % (11.6-14.8) L Platelet Count 140 K/UL (150-450) L Mean Platelet Volume 7.9 FL (6.5-10.1) Neutrophils (%) (Auto) 71.1 % (45.0-75.0) Lymphocytes (%) (Auto) 18.8 % (20.0-45.0) L Monocytes (%) (Auto) 9.1 % (1.0-10.0) Eosinophils (%) (Auto) 0.6 % (0.0-3.0) Basophils (%) (Auto) 0.4 % (0.0-2.0) Chemistry Test 07/08/19 05:00 Sodium Level 137 MMOL/L (136-145) Potassium Level 3.9 MMOL/L (3.5-5.1) Chloride Level 105 MMOL/L (98-107) Carbon Dioxide Level 29 MMOL/L (21-32) Anion Gap 3 mmol/L (5-15) L Blood Urea Nitrogen 3 mg/dL (7-18) L Creatinine 0.5 MG/DL (0.55-1.30) L Estimat Glomerular Filtration Rate > 60 mL/min (>60) Glucose Level 97 MG/DL (74-106) Calcium Level 8.1 MG/DL (8.5-10.1) L Total Bilirubin 0.9 MG/DL (0.2-1.0) Aspartate Amino Transf (AST/SGOT) 41 U/L (15-37) H Alanine Aminotransferase (ALT/SGPT) 117 U/L (12-78) H Alkaline Phosphatase 71 U/L (46-116) Total Protein 6.3 G/DL (6.4-8.2) L Albumin 2.8 G/DL (3.4-5.0) L Globulin 3.5 g/dL Albumin/Globulin Ratio 0.8 (1.0-2.7) L Amylase Level 325 U/L (25-115) H Lipase 1008 U/L (73-393) H Studies Pre-op Studies: EKG Risk Assessment & Plan Plan: mac/general Status Change Before Surgery: No Pre-Antibiotics Drug: none Radha Jonas CRNA July 08, 2019 08:55
[2019-07-08] MEDS ORDERED: LR 1000ml ONE (09:00)
[2019-07-08] MEDS: Pantoprazole Inj IVP SCH (09:00)
[2019-07-08] MEDS ORDERED: Lidocaine 1% MPF 10mg/ml 5ml ONE (09:00)
[2019-07-08] MEDS ORDERED: Propofol 200mg/20ml IV ONE (09:00)
--- NOTE | 2019-07-08 09:04 | Pre-Procedure Note/Attestation ---
Pre-Procedure Note/Attestation Complete Prior to Procedure Planned Procedure: not applicable Procedure Narrative: ercp Indications for Procedure Pre-Operative Diagnosis: cbd stones Attestation I attest that I discussed the nature of the procedure; its benefits; risks and complications; and alternatives (and the risks and benefits of such alternatives ), prior to the procedure, with the patient (or the patient's legal direct customer service representative). I attest that, if there was a reasonable possibility of needing a blood transfusion, the patient (or the patient's legal direct customer service representative) was given the [facility] standardized written summary, pursuant to the Driss Lizzy Blood Safety Act ([place] Health and Safety Code # 1645, as amended). I attest that I re-evaluated the patient just prior to the surgery and that there has been no change in the patient's H&P, except as documented below: Jus Cancino MD July 08, 2019 09:04
[2019-07-08] MEDS ORDERED: NS 500ML IVPB ONE (09:05)
--- NOTE | 2019-07-08 09:33 | Endoscopy Procedure Note ---
Endoscopy Procedure Note General Indication for Procedure: choledocholithiasis Procedures Performed: ERCP Operative Findings/Diagnosis: same Specimen: none Pt Tolerated Procedure Well: Yes Estimated Blood Loss: none Anesthesia Anesthesiologist: escobar Anesthesia: MAC Inserted Devices Implant(s) used?: No GI Core Measures 50 yrs or older w/o bx or poly: Not Applicable 10yrs. F/U recommended: Not Applicable Jus Cancino MD July 08, 2019 09:33
--- NOTE | 2019-07-08 09:56 | General Progress Note ---
Assessment/Plan Problem List: (1) Abdominal pain ICD Codes: R10.9 - Unspecified abdominal pain SNOMED: 01083474 (2) UTI (urinary tract infection) ICD Codes: N39.0 - Urinary tract infection, site not specified SNOMED: 79670371 (3) Nausea & vomiting ICD Codes: R11.2 - Nausea with vomiting, unspecified SNOMED: 28710137 (4) Gallstone pancreatitis ICD Codes: K85.10 - Biliary acute pancreatitis without necrosis or infection SNOMED: 30298843 Status: unchanged Assessment/Plan: gi sx f/u abx ercp pain control cbc bmp am Subjective Constitutional: Reports: weakness Allergies: Coded Allergies: No Known Allergies (Unverified , 07/06/19) All Systems: reviewed and negative except above Subjective calm in bed Objective Last 24 Hour Vital Signs Date Time Temp Pulse Resp B/P (MAP) Pulse Ox O2 Delivery O2 Flow Rate FiO2 07/08/19 09:45 96 18 106/75 100 Simple Mask 3 07/08/19 09:40 101 17 107/72 100 Simple Mask 3 07/08/19 09:35 97.7 104 19 108/74 100 Simple Mask 3 07/08/19 08:00 98.7 93 18 109/71 (84) 93 07/08/19 07:50 Room Air 07/08/19 04:00 99.4 89 18 103/70 (81) 95 07/08/19 00:00 98.6 82 17 117/76 (90) 94 07/07/19 21:00 Room Air 07/07/19 20:00 98.6 93 17 113/72 (86) 95 07/07/19 16:00 99.6 18 105/76 (86) 98 07/07/19 11:54 98.8 83 18 117/77 (90) 96 Intake and Output 07/07/19 07/08/19 19:00 07:00 Intake Total 735.0 ml Balance 735.0 ml IV Total 735.0 ml # Voids 3 Laboratory Tests 07/08/19 05:00: White Blood Count 11.6H, Red Blood Count 3.55L, Hemoglobin 11.4L, Hematocrit 31.6L, Mean Corpuscular Volume 89, Mean Corpuscular Hemoglobin 32.0H, Mean Corpuscular Hemoglobin Concent 35.9, Red Cell Distribution Width 11.0L, Platelet Count 140L, Mean Platelet Volume 7.9, Neutrophils (%) (Auto) 71.1, Lymphocytes (%) (Auto) 18.8L, Monocytes (%) (Auto) 9.1, Eosinophils (%) (Auto) 0.6, Basophils (%) (Auto) 0.4, Sodium Level 137, Potassium Level 3.9, Chloride Level 105, Carbon Dioxide Level 29, Anion Gap 3L, Blood Urea Nitrogen 3L, Creatinine 0.5L, Estimat Glomerular Filtration Rate > 60, Glucose Level 97, Calcium Level 8.1L, Total Bilirubin 0.9, Aspartate Amino Transf (AST/SGOT) 41H, Alanine Aminotransferase (ALT/SGPT) 117H, Alkaline Phosphatase 71, Total Protein 6.3L, Albumin 2.8L, Globulin 3.5, Albumin/Globulin Ratio 0.8L, Amylase Level 325H, Lipase 1008H Height (Feet): 4 Height (Inches): 11.00 Weight (Pounds): 117 General Appearance: lethargic EENT: normal ENT inspection Neck: normal alignment Cardiovascular: normal rate, regular rhythm Respiratory/Chest: lungs clear, normal breath sounds Abdomen: normal bowel sounds, non tender, soft Extremities: normal inspection Edema: no edema noted Arm (L), no edema noted Arm (R), no edema noted Leg (L), no edema noted Leg (R), no edema noted Pedal (L), no edema noted Pedal (R), no edema noted Generalized Skin: normal pigmentation Anderson Montero DO July 08, 2019 09:56
--- NOTE | 2019-07-08 10:04 | Immediate Post-Op Evaluation ---
Immediate Post-Op Evalulation Immediate Post-Op Evalulation Procedure: ERCP Date of Evaluation: July 08, 2019 Time of Evaluation: 09:45 IV Fluids: 300 Blood Pressure Systolic: 108 Blood Pressure Diastolic: 71 Pulse Rate: 100 Respiratory Rate: 14 O2 Sat by Pulse Oximetry: 98 Temperature (Fahrenheit): 97.3 Nausea: No Vomiting: No Complications none Patient Status: awake, reacts, patent Hydration Status: adequate Drug: none Radha Jonas CRNA July 08, 2019 10:04
--- NOTE | 2019-07-08 10:05 | 48 Hour Post Anesthesia Eval ---
Post Anesthesia Evaluation Procedure: ERCP Date of Evaluation: July 08, 2019 Time of Evaluation: 10:05 Blood Pressure Systolic: 115 0: 70 Pulse Rate: 50 Respiratory Rate: 14 Temperature (Fahrenheit): 97.3 O2 Sat by Pulse Oximetry: 98 Airway: patent Nausea: No Vomiting: No Hydration Status: adequate Cardiopulmonary Status: stable Mental Status/LOC: patient returned to baseline Post-Anesthesia Complications: none Follow-up care needed: N/A Radha Jonas CRNA July 08, 2019 10:05
[2019-07-08] MEDS ORDERED: fentaNYL 100 mcg/2 mL IV PRN (10:15)
--- NOTE | 2019-07-08 11:49 | General Surgery Progress Note ---
General Surgery-Progress Note Subjective Symptoms: improved Objective Last 24 Hour Vital Signs Date Time Temp Pulse Resp B/P (MAP) Pulse Ox O2 Delivery O2 Flow Rate FiO2 07/08/19 11:33 98.8 93 18 108/74 (85) 93 07/08/19 10:09 97.8 94 18 126/88 94 Room Air 07/08/19 10:05 50 14 98 07/08/19 10:04 100 14 98 07/08/19 10:00 99 18 137/87 96 Room Air 07/08/19 09:55 96 19 117/80 100 Simple Mask 3 07/08/19 09:45 96 18 106/75 100 Simple Mask 3 07/08/19 09:40 101 17 107/72 100 Simple Mask 3 07/08/19 09:35 97.7 104 19 108/74 100 Simple Mask 3 07/08/19 08:00 98.7 93 18 109/71 (84) 93 07/08/19 07:50 Room Air 07/08/19 04:00 99.4 89 18 103/70 (81) 95 07/08/19 00:00 98.6 82 17 117/76 (90) 94 07/07/19 21:00 Room Air 07/07/19 20:00 98.6 93 17 113/72 (86) 95 07/07/19 16:00 99.6 18 105/76 (86) 98 07/07/19 11:54 98.8 83 18 117/77 (90) 96 I&O Intake and Output 07/07/19 07/08/19 19:00 07:00 Intake Total 735.0 ml Balance 735.0 ml IV Total 735.0 ml # Voids 3 Respiratory: clear Abdomen: soft, flat, tenderness, present bowel sounds Extremities: no tenderness Laboratory Tests Test 07/08/19 05:00 White Blood Count 11.6 K/UL (4.8-10.8) H Red Blood Count 3.55 M/UL (4.20-5.40) L Hemoglobin 11.4 G/DL (12.0-16.0) L Hematocrit 31.6 % (37.0-47.0) L Mean Corpuscular Volume 89 FL (80-99) Mean Corpuscular Hemoglobin 32.0 PG (27.0-31.0) H Mean Corpuscular Hemoglobin Concent 35.9 G/DL (32.0-36.0) Red Cell Distribution Width 11.0 % (11.6-14.8) L Platelet Count 140 K/UL (150-450) L Mean Platelet Volume 7.9 FL (6.5-10.1) Neutrophils (%) (Auto) 71.1 % (45.0-75.0) Lymphocytes (%) (Auto) 18.8 % (20.0-45.0) L Monocytes (%) (Auto) 9.1 % (1.0-10.0) Eosinophils (%) (Auto) 0.6 % (0.0-3.0) Basophils (%) (Auto) 0.4 % (0.0-2.0) Sodium Level 137 MMOL/L (136-145) Potassium Level 3.9 MMOL/L (3.5-5.1) Chloride Level 105 MMOL/L (98-107) Carbon Dioxide Level 29 MMOL/L (21-32) Anion Gap 3 mmol/L (5-15) L Blood Urea Nitrogen 3 mg/dL (7-18) L Creatinine 0.5 MG/DL (0.55-1.30) L Estimat Glomerular Filtration Rate > 60 mL/min (>60) Glucose Level 97 MG/DL (74-106) Calcium Level 8.1 MG/DL (8.5-10.1) L Total Bilirubin 0.9 MG/DL (0.2-1.0) Aspartate Amino Transf (AST/SGOT) 41 U/L (15-37) H Alanine Aminotransferase (ALT/SGPT) 117 U/L (12-78) H Alkaline Phosphatase 71 U/L (46-116) Total Protein 6.3 G/DL (6.4-8.2) L Albumin 2.8 G/DL (3.4-5.0) L Globulin 3.5 g/dL Albumin/Globulin Ratio 0.8 (1.0-2.7) L Amylase Level 325 U/L (25-115) H Lipase 1008 U/L (73-393) H Assessment Additional Comments gallstone pancreatitis Plan Additional Comments Cory Chin in AM Rio Mcmillan MD July 08, 2019 11:49
--- NOTE | 2019-07-08 12:07 | Diagnostic Imaging Report ---
INDICATION: Pain, intraoperative TECHNIQUE: Intraoperative imaging Fluoroscopy time: 70.4 seconds Total dose: [id number] mGym2 Total number of images: 3 COMPARISON: None FINDINGS: Intraoperative images during ERCP demonstrate opacification of the extrahepatic and central intrahepatic bile ducts, which are minimally ectatic IMPRESSION: Intraoperative imaging, as described
--- NOTE | 2019-07-08 13:53 | Infectious Diseases Prog Note ---
Assessment/Plan Assessment/Plan Assessment: Gallstone pancreatitis Acute cholecystitis Choledocholithiasis -07/07 ERCP: Intraoperative images during ERCP demonstrate opacification of the extrahepatic and central intrahepatic bile ducts, which are minimally ectatic -CT abd/p 1. Enlarged pancreas with prominent peripancreatic fluid, concerning for pancreatitis. Question gallstone pancreatitis. Please correlate with lipase levels. No fluid collection or pseudocyst.Distended gallbladder with cholelithiasis. Further evaluation could be performed with ultrasound if clinically indicated. Biliary dilatation with stones in the common bile duct. -Abd US: Pancreas is enlarged with peripancreatic fluid, concerning for acute pancreatitis. Cholelithiasis within a distended gallbladder. Mild gallbladder wall thickening and pericholecystic edema. Findings are concerning for acute cholecystitis. Dilated common bile duct measuring 10.3 mm. Stone in the common bile duct measuring 1 cm. Ascites in the right upper quadrant. Afebrile Leukocytosis, improving -/ u/a wbc 5-10, nit neg, leuk +1; Ucx 10-20k GNR Elevated LFTs, worsened, now improving nephrolithiasis Plan: -Continue empiric Zosyn #3 -/ SP Ceftriaxone x1 -f/u cx -Monitor CBC/CMP, temperatures -GI and Sx f/u -aspiration precautions Thank you for consulting [facility]. Will continue to follow along with you. Discussed with RN. Subjective Allergies: Coded Allergies: No Known Allergies (Unverified , 07/06/19) Subjective afebrile wbc improving ERCP done today Objective Vital Signs Last 24 Hour Vital Signs Date Time Temp Pulse Resp B/P (MAP) Pulse Ox O2 Delivery O2 Flow Rate FiO2 07/08/19 11:33 98.8 93 18 108/74 (85) 93 07/08/19 10:09 97.8 94 18 126/88 94 Room Air 07/08/19 10:05 50 14 98 07/08/19 10:04 100 14 98 07/08/19 10:00 99 18 137/87 96 Room Air 07/08/19 09:55 96 19 117/80 100 Simple Mask 3 07/08/19 09:45 96 18 106/75 100 Simple Mask 3 07/08/19 09:40 101 17 107/72 100 Simple Mask 3 07/08/19 09:35 97.7 104 19 108/74 100 Simple Mask 3 07/08/19 08:00 98.7 93 18 109/71 (84) 93 07/08/19 07:50 Room Air 07/08/19 04:00 99.4 89 18 103/70 (81) 95 07/08/19 00:00 98.6 82 17 117/76 (90) 94 07/07/19 21:00 Room Air 07/07/19 20:00 98.6 93 17 113/72 (86) 95 07/07/19 16:00 99.6 18 105/76 (86) 98 Height (Feet): 4 Height (Inches): 11.00 Weight (Pounds): 117 Objective GENERAL: The patient appeared to be a well-developed, well-nourished HEENT: Head is normocephalic and atraumatic. Eyes, pupils are equal, round, and reactive to light. 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 Mouth is clear. NECK: There is no palpable thyromegaly or adenopathy. CHEST: Clear to auscultation and percussion. HEART: There is no gallop or murmur. S1 and S2 are within normal limits. ABDOMEN: Soft and flat with tenderness allover, which is more pronounced at the upper abdomen, especially at the left upper quadrant. There is no rigidity. Bowel sounds are present, and there is no palpable organomegaly. EXTREMITIES: Within normal limits. Microbiology Date/Time Source Procedure Growth Status 07/06/19 09:55 Urine,Clean Catch Urine Culture - Preliminary Gram Negative Bacillus 1 Resulted Laboratory Tests Test 07/08/19 05:00 White Blood Count 11.6 K/UL (4.8-10.8) H Red Blood Count 3.55 M/UL (4.20-5.40) L Hemoglobin 11.4 G/DL (12.0-16.0) L Hematocrit 31.6 % (37.0-47.0) L Mean Corpuscular Volume 89 FL (80-99) Mean Corpuscular Hemoglobin 32.0 PG (27.0-31.0) H Mean Corpuscular Hemoglobin Concent 35.9 G/DL (32.0-36.0) Red Cell Distribution Width 11.0 % (11.6-14.8) L Platelet Count 140 K/UL (150-450) L Mean Platelet Volume 7.9 FL (6.5-10.1) Neutrophils (%) (Auto) 71.1 % (45.0-75.0) Lymphocytes (%) (Auto) 18.8 % (20.0-45.0) L Monocytes (%) (Auto) 9.1 % (1.0-10.0) Eosinophils (%) (Auto) 0.6 % (0.0-3.0) Basophils (%) (Auto) 0.4 % (0.0-2.0) Sodium Level 137 MMOL/L (136-145) Potassium Level 3.9 MMOL/L (3.5-5.1) Chloride Level 105 MMOL/L (98-107) Carbon Dioxide Level 29 MMOL/L (21-32) Anion Gap 3 mmol/L (5-15) L Blood Urea Nitrogen 3 mg/dL (7-18) L Creatinine 0.5 MG/DL (0.55-1.30) L Estimat Glomerular Filtration Rate > 60 mL/min (>60) Glucose Level 97 MG/DL (74-106) Calcium Level 8.1 MG/DL (8.5-10.1) L Total Bilirubin 0.9 MG/DL (0.2-1.0) Aspartate Amino Transf (AST/SGOT) 41 U/L (15-37) H Alanine Aminotransferase (ALT/SGPT) 117 U/L (12-78) H Alkaline Phosphatase 71 U/L (46-116) Total Protein 6.3 G/DL (6.4-8.2) L Albumin 2.8 G/DL (3.4-5.0) L Globulin 3.5 g/dL Albumin/Globulin Ratio 0.8 (1.0-2.7) L Amylase Level 325 U/L (25-115) H Lipase 1008 U/L (73-393) H Current Medications Medications (Trade) Dose Ordered Sig/Najma Route PRN Reason Start Time Stop Time Status Last Admin Dose Admin Acetaminophen (Tylenol) 650 mg Q4H PRN RECTAL Mild Pain (Pain Scale 1-3) 07/06/19 17:30 08/05/19 17:29 Dextrose/ Electrolytes 1,000 ml @ 125 mls/hr Q8H IV 07/07/19 08:00 08/06/19 07:59 07/08/19 03:53 Hydromorphone HCl (Dilaudid) 1 mg Q3H PRN IVP For Pain 07/07/19 17:00 07/14/19 16:59 07/08/19 12:17 Ondansetron HCl (Zofran) 4 mg Q4H PRN IVP Nausea & Vomiting 07/06/19 21:00 08/05/19 20:59 07/07/19 23:04 Pantoprazole (Protonix) 40 mg DAILY IVP 07/06/19 17:30 08/05/19 17:29 07/07/19 08:16 Piperacillin Sod/ Tazobactam Sod 3.375 gm/Sodium Chloride 110 ml @ 27.5 mls/hr Q8H IVPB 07/06/19 20:30 07/13/19 20:29 07/08/19 12:23 Michelle Sr M.D. July 08, 2019 13:53
--- NOTE | 2019-07-08 14:04 | Anethesia Preoperative Eval ---
Anesthesia Pre-op PMH/ROS General Date of Evaluation: July 08, 2019 Time of Evaluation: 11:09 Anesthesiologist: [place] ASA Score: ASA 2 Mallampati Score Class I : Soft palate, uvula, fauces, pillars visible Class II: Soft palate, uvula, fauces visible Class III: Soft palate, base of uvula visible Class IV: Only hard plate visible Mallampati Classification: Class II Surgeon: Hipolito Diagnosis: Gallstone Pancreatitis Surgical Procedure: Laparoscopic Cholecystectomy Anesthesia History: none Family History: no anesthesia problems Allergies: Coded Allergies: No Known Allergies (Unverified , 07/06/19) Medications: see eMAR Patient NPO?: Yes NPO Date: July 08, 2019 NPO Time: 0000 Past Medical History Gastrointestinal/Genitourinary: Reports: other - Pancreatitis PSxH Narrative: ERCP Anesthesia Pre-op Phys. Exam Physician Exam Last Vital Signs Date Time Temp Pulse Resp B/P (MAP) Pulse Ox O2 Delivery O2 Flow Rate FiO2 07/08/19 11:33 98.8 93 18 108/74 (85) 93 07/08/19 10:09 Room Air 07/08/19 09:55 3 07/06/19 09:56 100 Constitutional: NAD Neurologic: CN 2-12 intact Cardiovascular: RRR Respiratory: CTA Gastrointestinal: S/NT/ND Airway Exam Mallampati Score: Class II MO: full ROM: full Teeth: intact Anesthesia Pre-op A/P Labs Hematology Test 07/08/19 05:00 White Blood Count 11.6 K/UL (4.8-10.8) H Red Blood Count 3.55 M/UL (4.20-5.40) L Hemoglobin 11.4 G/DL (12.0-16.0) L Hematocrit 31.6 % (37.0-47.0) L Mean Corpuscular Volume 89 FL (80-99) Mean Corpuscular Hemoglobin 32.0 PG (27.0-31.0) H Mean Corpuscular Hemoglobin Concent 35.9 G/DL (32.0-36.0) Red Cell Distribution Width 11.0 % (11.6-14.8) L Platelet Count 140 K/UL (150-450) L Mean Platelet Volume 7.9 FL (6.5-10.1) Neutrophils (%) (Auto) 71.1 % (45.0-75.0) Lymphocytes (%) (Auto) 18.8 % (20.0-45.0) L Monocytes (%) (Auto) 9.1 % (1.0-10.0) Eosinophils (%) (Auto) 0.6 % (0.0-3.0) Basophils (%) (Auto) 0.4 % (0.0-2.0) Chemistry Test 07/08/19 05:00 Sodium Level 137 MMOL/L (136-145) Potassium Level 3.9 MMOL/L (3.5-5.1) Chloride Level 105 MMOL/L (98-107) Carbon Dioxide Level 29 MMOL/L (21-32) Anion Gap 3 mmol/L (5-15) L Blood Urea Nitrogen 3 mg/dL (7-18) L Creatinine 0.5 MG/DL (0.55-1.30) L Estimat Glomerular Filtration Rate > 60 mL/min (>60) Glucose Level 97 MG/DL (74-106) Calcium Level 8.1 MG/DL (8.5-10.1) L Total Bilirubin 0.9 MG/DL (0.2-1.0) Aspartate Amino Transf (AST/SGOT) 41 U/L (15-37) H Alanine Aminotransferase (ALT/SGPT) 117 U/L (12-78) H Alkaline Phosphatase 71 U/L (46-116) Total Protein 6.3 G/DL (6.4-8.2) L Albumin 2.8 G/DL (3.4-5.0) L Globulin 3.5 g/dL Albumin/Globulin Ratio 0.8 (1.0-2.7) L Amylase Level 325 U/L (25-115) H Lipase 1008 U/L (73-393) H Risk Assessment & Plan Assessment: ASA 2 Plan: GA Pre-Antibiotics Drug: Moises Powell MD July 08, 2019 14:04
--- NOTE | 2019-07-08 16:44 | Procedure Note ---
DATE OF PROCEDURE: 07/08/2019 SURGEON: Jus Cancino M.D. PROCEDURE: ERCP with sphincterotomy, stone removal. ANESTHESIA: Per VP MARKETING, Radha. INSTRUMENT: Olympus adult ERCP scope. INDICATION: Choledocholithiasis. REASON FOR PROCEDURE: The procedure, risks, benefits, and possible consequences, including hemorrhage, aspiration, perforation and infection, and alternative treatments, were explained to the patient/legal guardian by Dr. Jus Cancino and the patient/legal guardian understood and accepted these risks. PROCEDURE IN DETAIL: After informed consent was obtained and the patient was adequately sedated, ERCP scope was advanced from the mouth into second portion of the duodenum. Using a sphincterotome, common bile duct was selectively cannulated. Initial cholangiogram showed dilated common bile duct with multiple filling defects in the common bile duct suggestive of stones. Then over a guidewire using sphincterotome 95% sphincterotomy was performed. A 9 mm balloon was used to sweep the duct multiple times and removed about 8 stones yellowish color from distal common bile duct. Post stone removal, balloon cholangiogram showed no further filling defects and flow of contrast from common bile to the duodenum was excellent, so no stent was placed. The patient tolerated the procedure very well without any complication. SUMMARY OF FINDINGS: About eight CBD stones removed. RECOMMENDATIONS: 1. Follow labs. 2. The patient most likely will need a cholecystectomy when pancreatitis is improved. I want to thank, Dr. Anderson Montero, for this kind referral. Jus Cancino M.D. DR: [email or web address] JOB#: [id number] CC: Anderson Montero D.O.
[2019-07-09] VITALS (13 sets, daily range): BP systolic 103–134; BP diastolic 68–89
[2019-07-09] MEDS: D5 1/2NS w/KCl 20mEq 1,000 ML IV SCH ×4 (01:35→14:33)
[2019-07-09] MEDS: HYDROmorphone 1mg/ml Carpuject IVP PRN ×4 (01:52→21:25)
[2019-07-09] MEDS: Piperacillin/Tazobactam 3.375 GM in NS 110 ML IVPB SCH ×3 (04:22→21:24)
[2019-07-09 06:45] LABS: BASOPHILS % (AUTO) 0.7 % (0.0-2.0); EOSINOPHILS % (AUTO) 2.7 % (0.0-3.0); HEMATOCRIT 29.9 % (37.0-47.0); HEMOGLOBIN 10.6 G/DL (12.0-16.0); LYMPHOCYTES % (AUTO) 25.1 % (20.0-45.0); MEAN CORPUSCULAR VOLUME 89 FL (80-99); MONOCYTES % (AUTO) 9.4 % (1.0-10.0); NEUTROPHILS % (AUTO) 62.2 % (45.0-75.0); PLATELET COUNT 134 K/UL (150-450); RED BLOOD COUNT 3.36 M/UL (4.20-5.40); RED CELL DISTRIBUTION WIDTH 11.2 % (11.6-14.8); WHITE BLOOD COUNT 8.5 K/UL (4.8-10.8)
[2019-07-09 07:13] LABS: ALANINE AMINOTRANSFERASE 84 U/L (12-78); ALBUMIN 2.6 G/DL (3.4-5.0); ALBUMIN/GLOBULIN RATIO 0.7 (1.0-2.7); ALKALINE PHOSPHATASE 90 U/L (46-116); AMYLASE 134 U/L (25-115); ANION GAP 5 mmol/L (5-15); ASPARTATE AMINO TRANSFERASE 31 U/L (15-37); BILIRUBIN,TOTAL 0.9 MG/DL (0.2-1.0); BLOOD UREA NITROGEN 3 mg/dL (7-18); CALCIUM 8.3 MG/DL (8.5-10.1); CARBON DIOXIDE 31 MMOL/L (21-32); CHLORIDE 107 MMOL/L (98-107); CREATININE 0.5 MG/DL (0.55-1.30); POTASSIUM 3.7 MMOL/L (3.5-5.1); SODIUM 142 MMOL/L (136-145)
[2019-07-09] MEDS: Pantoprazole Inj IVP SCH (09:21)
[2019-07-09] MEDS ORDERED: Bacitracin 50000 Units Vial ONE (10:36)
[2019-07-09] MEDS ORDERED: Iothalamate Meglumine 60% 30ML INJ ONE (10:36)
[2019-07-09] MEDS ORDERED: fentaNYL 100 mcg/2 mL IV ONE (10:52)
[2019-07-09] MEDS ORDERED: Midazolam 2mg/2ml Inj ONE (10:52)
[2019-07-09] MEDS ORDERED: Propofol 200mg/20ml IV ONE (10:53)
[2019-07-09] MEDS ORDERED: Lidocaine 1% MPF 10mg/ml 5ml ONE (10:53)
--- NOTE | 2019-07-09 10:56 | General Progress Note ---
Assessment/Plan Status: unchanged Assessment/Plan: gallstone pancreatitis CBD stones based on CT npo ivf pain control s/p ERCP and 8 stones removal pending surg for today Subjective ROS Limited/Unobtainable: Yes Allergies: Coded Allergies: No Known Allergies (Unverified , 07/06/19) Objective Last 24 Hour Vital Signs Date Time Temp Pulse Resp B/P (MAP) Pulse Ox O2 Delivery O2 Flow Rate FiO2 07/09/19 09:00 Room Air 07/09/19 08:00 98.5 82 18 111/72 (85) 95 07/09/19 04:00 98.6 83 17 109/72 (84) 95 07/09/19 00:00 98.8 83 17 103/80 (88) 96 07/08/19 22:04 99.8 07/08/19 21:00 Room Air 07/08/19 20:00 100.1 84 18 129/82 (98) 94 07/08/19 16:00 100.2 91 20 113/76 (88) 93 07/08/19 11:33 98.8 93 18 108/74 (85) 93 Intake and Output 07/08/19 07/09/19 19:00 07:00 Intake Total 1490 ml 1510.0 ml Output Total 0 ml Balance 1490 ml 1510.0 ml Intake Oral 240 ml 400 ml IV Total 1250 ml 1110.0 ml Estimated Blood Loss 0 ml # Voids 1 3 Laboratory Tests 07/09/19 04:55: White Blood Count 8.5, Red Blood Count 3.36L, Hemoglobin 10.6L, Hematocrit 29.9L , Mean Corpuscular Volume 89, Mean Corpuscular Hemoglobin 31.6H, Mean Corpuscular Hemoglobin Concent 35.6, Red Cell Distribution Width 11.2L, Platelet Count 134L, Mean Platelet Volume 7.9, Neutrophils (%) (Auto) 62.2, Lymphocytes (%) (Auto) 25.1, Monocytes (%) (Auto) 9.4, Eosinophils (%) (Auto) 2.7, Basophils (%) (Auto) 0.7, Prothrombin Time 10.4, Prothromb Time International Ratio 1.0, Activated Partial Thromboplast Time 29, Sodium Level 142, Potassium Level 3.7, Chloride Level 107, Carbon Dioxide Level 31, Anion Gap 5, Blood Urea Nitrogen 3L, Creatinine 0.5L, Estimat Glomerular Filtration Rate > 60, Glucose Level 97, Calcium Level 8.3L, Total Bilirubin 0.9, Aspartate Amino Transf (AST/SGOT) 31, Alanine Aminotransferase (ALT/SGPT) 84H, Alkaline Phosphatase 90, Total Protein 6.5, Albumin 2.6L, Globulin 3.9, Albumin/Globulin Ratio 0.7L, Amylase Level 134H, Lipase 188 Height (Feet): 4 Height (Inches): 10.00 Weight (Pounds): 117 General Appearance: alert EENT: normal ENT inspection Neck: supple Cardiovascular: normal rate Respiratory/Chest: decreased breath sounds Abdomen: normal bowel sounds, non tender, soft Extremities: non-tender Jus Cancino MD July 09, 2019 10:55
[2019-07-09] MEDS ORDERED: Succinylcholine 20mg/ml 10ml vial ONE (11:05)
[2019-07-09] MEDS ORDERED: Rocuronium Bromide 50mg/5ml Inj IV ONE (11:05)
--- NOTE | 2019-07-09 11:26 | Pre-Procedure Note/Attestation ---
Pre-Procedure Note/Attestation Complete Prior to Procedure Planned Procedure: not applicable Procedure Narrative: laparoscopic Cholecystectomy possible open cholecystectomy Indications for Procedure Pre-Operative Diagnosis: gallstone pancreatitis Attestation I attest that I discussed the nature of the procedure; its benefits; risks and complications; and alternatives (and the risks and benefits of such alternatives ), prior to the procedure, with the patient (or the patient's legal factory representative). I attest that, if there was a reasonable possibility of needing a blood transfusion, the patient (or the patient's legal factory representative) was given the [facility] standardized written summary, pursuant to the Driss Lizzy Blood Safety Act ([place] Health and Safety Code # 1645, as amended). I attest that I re-evaluated the patient just prior to the surgery and that there has been no change in the patient's H&P, except as documented below: Rio Mcmillan MD July 09, 2019 11:26
[2019-07-09] MEDS ORDERED: NS Irrig 1000ml ONE (11:30)
[2019-07-09] MEDS ORDERED: LR 1000ml ONE (11:30)
[2019-07-09] MEDS ORDERED: Sterile Water Irrig 1000ml IRRIG ONE (11:30)
[2019-07-09] MEDS ORDERED: NS Irrig 1000ml IRRIG ONE (11:58)
[2019-07-09] MEDS ORDERED: LR 1000ml 1,000 ML IVLG SCH (12:14)
[2019-07-09] MEDS ORDERED: DiphenhydrAMINE 50mg/ml Inj IVP PRN (12:15)
[2019-07-09] MEDS ORDERED: Midazolam 2mg/2ml Inj IVP PRN (12:15)
[2019-07-09] MEDS ORDERED: Ketorolac 30mg Inj IV PRN (12:15)
[2019-07-09] MEDS ORDERED: Hydromorphone 0.5mg/0.5ml inj IVP PRN ×2 (12:15→13:24)
[2019-07-09] MEDS ORDERED: Metoclopramide 10mg/2ml Inj IVP PRN ×2 (12:15→13:15)
[2019-07-09] MEDS ORDERED: Meperidine 25mg/0.5ml Inj (FOR RIGORS ONLY) IV PRN (12:15)
--- NOTE | 2019-07-09 12:43 | General Progress Note ---
Assessment/Plan Problem List: (1) Abdominal pain ICD Codes: R10.9 - Unspecified abdominal pain SNOMED: 36362306 (2) UTI (urinary tract infection) ICD Codes: N39.0 - Urinary tract infection, site not specified SNOMED: 87113174 (3) Nausea & vomiting ICD Codes: R11.2 - Nausea with vomiting, unspecified SNOMED: 27837869 (4) Gallstone pancreatitis ICD Codes: K85.10 - Biliary acute pancreatitis without necrosis or infection SNOMED: 16256737 Status: unchanged Assessment/Plan: gi sx f/u abx ercp pain control cbc bmp am gb sx Subjective Constitutional: Reports: weakness Allergies: Coded Allergies: No Known Allergies (Unverified , 07/06/19) All Systems: reviewed and negative except above Subjective calm in bed awating gb sx Objective Last 24 Hour Vital Signs Date Time Temp Pulse Resp B/P (MAP) Pulse Ox O2 Delivery O2 Flow Rate FiO2 07/09/19 09:00 Room Air 07/09/19 08:00 98.5 82 18 111/72 (85) 95 07/09/19 04:00 98.6 83 17 109/72 (84) 95 07/09/19 00:00 98.8 83 17 103/80 (88) 96 07/08/19 22:04 99.8 07/08/19 21:00 Room Air 07/08/19 20:00 100.1 84 18 129/82 (98) 94 07/08/19 16:00 100.2 91 20 113/76 (88) 93 Intake and Output 07/08/19 07/09/19 19:00 07:00 Intake Total 1490 ml 1510.0 ml Output Total 0 ml Balance 1490 ml 1510.0 ml Intake Oral 240 ml 400 ml IV Total 1250 ml 1110.0 ml Estimated Blood Loss 0 ml # Voids 1 3 Laboratory Tests 07/09/19 04:55: White Blood Count 8.5, Red Blood Count 3.36L, Hemoglobin 10.6L, Hematocrit 29.9L , Mean Corpuscular Volume 89, Mean Corpuscular Hemoglobin 31.6H, Mean Corpuscular Hemoglobin Concent 35.6, Red Cell Distribution Width 11.2L, Platelet Count 134L, Mean Platelet Volume 7.9, Neutrophils (%) (Auto) 62.2, Lymphocytes (%) (Auto) 25.1, Monocytes (%) (Auto) 9.4, Eosinophils (%) (Auto) 2.7, Basophils (%) (Auto) 0.7, Prothrombin Time 10.4, Prothromb Time International Ratio 1.0, Activated Partial Thromboplast Time 29, Sodium Level 142, Potassium Level 3.7, Chloride Level 107, Carbon Dioxide Level 31, Anion Gap 5, Blood Urea Nitrogen 3L, Creatinine 0.5L, Estimat Glomerular Filtration Rate > 60, Glucose Level 97, Calcium Level 8.3L, Total Bilirubin 0.9, Aspartate Amino Transf (AST/SGOT) 31, Alanine Aminotransferase (ALT/SGPT) 84H, Alkaline Phosphatase 90, Total Protein 6.5, Albumin 2.6L, Globulin 3.9, Albumin/Globulin Ratio 0.7L, Amylase Level 134H, Lipase 188 Height (Feet): 4 Height (Inches): 10.00 Weight (Pounds): 117 General Appearance: lethargic EENT: normal ENT inspection Neck: normal alignment Cardiovascular: normal peripheral pulses, normal rate, regular rhythm Respiratory/Chest: chest wall non-tender, lungs clear, normal breath sounds Abdomen: normal bowel sounds, non tender, soft Extremities: normal inspection Neurologic: motor weakness Skin: normal pigmentation, warm/dry Anderson Montero DO July 09, 2019 12:43
[2019-07-09] MEDS ORDERED: Glycopyrrolate 0.2mg/ml 1ml Vial ONE (12:46)
[2019-07-09] MEDS ORDERED: Ketorolac 30mg Inj ONE (12:46)
[2019-07-09] MEDS ORDERED: Neostigmine 1mg/ml 10ml Inj ONE (12:46)
--- NOTE | 2019-07-09 13:09 | Brief Operative Note ---
Immediate Post Operative Note Operative Note Pre-op Diagnosis: gallstone pancreatitis Procedure: lap belinda Post-op Diagnosis: same as pre-op Findings: consistent w/pre-op dx studies Surgeon: MD Ruthy [employer] Global Director: None Anesthesiologist: Dr. Leslie Anesthesia: general Specimen: yes Complications: none Condition: stable Fluids: per anesthesiologist Estimated Blood Loss: volume - 30 ml Drains: none Implant(s) used?: No Rio Mcmillan MD July 09, 2019 13:09
[2019-07-09] MEDS ORDERED: Acetaminophen 650 MG SUPP RECTAL PRN (13:15)
--- NOTE | 2019-07-09 13:18 | Immediate Post-Op Evaluation ---
Immediate Post-Op Evalulation Immediate Post-Op Evalulation Procedure: Laparoscopic cholecystectomy Date of Evaluation: July 09, 2019 Time of Evaluation: 13:17 IV Fluids: 1000 Blood Products: none Estimated Blood Loss: 50 Urinary Output: none Blood Pressure Systolic: 110 Blood Pressure Diastolic: 68 Pulse Rate: 76 Respiratory Rate: 20 O2 Sat by Pulse Oximetry: 99 Temperature (Fahrenheit): 97.6 Pain Score (1-10): 1 Nausea: No Vomiting: No Complications none Patient Status: reacts, patent, extubated, none Hydration Status: adequate Jacoby Leslie MD July 09, 2019 13:18
--- NOTE | 2019-07-09 13:41 | 48 Hour Post Anesthesia Eval ---
Post Anesthesia Evaluation Procedure: Laparoscopic cholecystectomy Date of Evaluation: July 09, 2019 Time of Evaluation: 13:39 Blood Pressure Systolic: 124 0: 78 Pulse Rate: 76 Respiratory Rate: 20 Temperature (Fahrenheit): 97.6 O2 Sat by Pulse Oximetry: 98 Airway: patent Nausea: No Vomiting: No Pain Intensity: 2 Hydration Status: adequate Cardiopulmonary Status: stable Mental Status/LOC: patient returned to baseline Follow-up Care/Observations: n/a Post-Anesthesia Complications: none Follow-up care needed: N/A Jacoby Leslie MD July 09, 2019 13:40
[2019-07-09] MEDS ORDERED: Piperacillin/Tazobactam 3.375 GM in NS 110 ML IVPB SCH (14:00)
--- NOTE | 2019-07-09 15:30 | Infectious Diseases Prog Note ---
Assessment/Plan Assessment/Plan Assessment: Gallstone pancreatitis Acute cholecystitis Choledocholithiasis -07/08 SP lap belinda -07/07 ERCP: Intraoperative images during ERCP demonstrate opacification of the extrahepatic and central intrahepatic bile ducts, which are minimally ectatic -CT abd/p 1. Enlarged pancreas with prominent peripancreatic fluid, concerning for pancreatitis. Question gallstone pancreatitis. Please correlate with lipase levels. No fluid collection or pseudocyst.Distended gallbladder with cholelithiasis. Further evaluation could be performed with ultrasound if clinically indicated. Biliary dilatation with stones in the common bile duct. -Abd US: Pancreas is enlarged with peripancreatic fluid, concerning for acute pancreatitis. Cholelithiasis within a distended gallbladder. Mild gallbladder wall thickening and pericholecystic edema. Findings are concerning for acute cholecystitis. Dilated common bile duct measuring 10.3 mm. Stone in the common bile duct measuring 1 cm. Ascites in the right upper quadrant. Fever Leukocytosis, SP -/ u/a wbc 5-10, nit neg, leuk +1; Ucx 10-20k E.coli (johnson S) Elevated LFTs, worsened, now improving nephrolithiasis Plan: -Continue empiric Zosyn #/ -07/05 SP Ceftriaxone x1 -f/u cx -Monitor CBC/CMP, temperatures -GI and Sx f/u -aspiration precautions Thank you for consulting [facility]. Will continue to follow along with you. Discussed with RN. Subjective Allergies: Coded Allergies: No Known Allergies (Unverified , 07/06/19) Subjective Tm 100.1 sp lap belinda today leukocytosis resolved Bcx p Objective Vital Signs Last 24 Hour Vital Signs Date Time Temp Pulse Resp B/P (MAP) Pulse Ox O2 Delivery O2 Flow Rate FiO2 07/09/19 14:45 97.9 75 18 125/81 (96) 98 07/09/19 14:15 98.2 88 19 109/79 100 Nasal Cannula 3 07/09/19 14:11 98.2 07/09/19 14:11 98.2 07/09/19 14:05 69 15 112/71 100 Nasal Cannula 3 07/09/19 13:40 74 20 121/75 100 Simple Mask 6 07/09/19 13:40 76 20 98 07/09/19 13:30 85 20 120/77 100 Simple Mask 6 5/5/20 13:20 74 19 112/72 100 Simple Mask 6 07/09/19 13:18 76 20 99 07/09/19 13:15 74 18 110/69 100 Simple Mask 6 07/09/19 13:12 97.5 81 24 115/68 100 Simple Mask 6 07/09/19 09:00 Room Air 07/09/19 08:00 98.5 82 18 111/72 (85) 95 07/09/19 04:00 98.6 83 17 109/72 (84) 95 07/09/19 00:00 98.8 83 17 103/80 (88) 96 07/08/19 22:04 99.8 07/08/19 21:00 Room Air 07/08/19 20:00 100.1 84 18 129/82 (98) 94 07/08/19 16:00 100.2 91 20 113/76 (88) 93 Height (Feet): 4 Height (Inches): 10.00 Weight (Pounds): 117 Objective GENERAL: The patient appeared to be a well-developed, well-nourished HEENT: Head is normocephalic and atraumatic. Eyes, pupils are equal, round, and reactive to light. 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 Mouth is clear. NECK: There is no palpable thyromegaly or adenopathy. CHEST: Clear to auscultation and percussion. HEART: There is no gallop or murmur. S1 and S2 are within normal limits. ABDOMEN: Soft and flat with tenderness allover, which is more pronounced at the upper abdomen, especially at the left upper quadrant. There is no rigidity. Bowel sounds are present, and there is no palpable organomegaly. EXTREMITIES: Within normal limits. Laboratory Tests Test 07/09/19 04:55 White Blood Count 8.5 K/UL (4.8-10.8) Red Blood Count 3.36 M/UL (4.20-5.40) L Hemoglobin 10.6 G/DL (12.0-16.0) L Hematocrit 29.9 % (37.0-47.0) L Mean Corpuscular Volume 89 FL (80-99) Mean Corpuscular Hemoglobin 31.6 PG (27.0-31.0) H Mean Corpuscular Hemoglobin Concent 35.6 G/DL (32.0-36.0) Red Cell Distribution Width 11.2 % (11.6-14.8) L Platelet Count 134 K/UL (150-450) L Mean Platelet Volume 7.9 FL (6.5-10.1) Neutrophils (%) (Auto) 62.2 % (45.0-75.0) Lymphocytes (%) (Auto) 25.1 % (20.0-45.0) Monocytes (%) (Auto) 9.4 % (1.0-10.0) Eosinophils (%) (Auto) 2.7 % (0.0-3.0) Basophils (%) (Auto) 0.7 % (0.0-2.0) Prothrombin Time 10.4 SEC (9.30-11.50) Prothromb Time International Ratio 1.0 (0.9-1.1) Activated Partial Thromboplast Time 29 SEC (23-33) Sodium Level 142 MMOL/L (136-145) Potassium Level 3.7 MMOL/L (3.5-5.1) Chloride Level 107 MMOL/L (98-107) Carbon Dioxide Level 31 MMOL/L (21-32) Anion Gap 5 mmol/L (5-15) Blood Urea Nitrogen 3 mg/dL (7-18) L Creatinine 0.5 MG/DL (0.55-1.30) L Estimat Glomerular Filtration Rate > 60 mL/min (>60) Glucose Level 97 MG/DL (74-106) Calcium Level 8.3 MG/DL (8.5-10.1) L Total Bilirubin 0.9 MG/DL (0.2-1.0) Aspartate Amino Transf (AST/SGOT) 31 U/L (15-37) Alanine Aminotransferase (ALT/SGPT) 84 U/L (12-78) H Alkaline Phosphatase 90 U/L (46-116) Total Protein 6.5 G/DL (6.4-8.2) Albumin 2.6 G/DL (3.4-5.0) L Globulin 3.9 g/dL Albumin/Globulin Ratio 0.7 (1.0-2.7) L Amylase Level 134 U/L (25-115) H Lipase 188 U/L (73-393) Current Medications Medications (Trade) Dose Ordered Sig/Najma Route PRN Reason Start Time Stop Time Status Last Admin Dose Admin Acetaminophen (Tylenol) 650 mg FOUR TIMES A DAY PRN ORAL fever 07/08/19 21:30 08/07/19 21:29 07/08/19 21:34 Acetaminophen (Tylenol) 650 mg Q4H PRN RECTAL Mild Pain (Pain Scale 1-3) 07/06/19 17:30 08/05/19 17:29 Bisacodyl (Dulcolax) 10 mg ONCE RECTAL 07/10/19 08:15 07/10/19 10:00 Dextrose/ Electrolytes 1,000 ml @ 100 mls/hr Q10H IV 07/09/19 13:23 08/08/19 13:22 07/09/19 14:33 Hydromorphone HCl (Dilaudid) 0.5 mg Q3H PRN IVP Pain Score 1-3 07/09/19 13:24 07/16/19 13:23 Hydromorphone HCl (Dilaudid) 1 mg Q3H PRN IVP pain score 4-6 07/09/19 13:15 07/16/19 13:14 Metoclopramide HCl (Reglan) 10 mg Q6H PRN IVP Nausea & Vomiting 07/09/19 13:15 08/08/19 13:14 Ondansetron HCl (Zofran) 4 mg Q6H PRN IVP Nausea & Vomiting 07/09/19 13:15 08/08/19 13:14 Pantoprazole (Protonix) 40 mg DAILY IVP 07/06/19 17:30 08/05/19 17:29 07/09/19 09:21 Piperacillin Sod/ Tazobactam Sod 3.375 gm/Sodium Chloride 110 ml @ 27.5 mls/hr Q8H IVPB 07/06/19 20:30 07/13/19 20:29 07/09/19 04:22 Michelle Sr M.D. July 09, 2019 15:30
[2019-07-09] MEDS ORDERED: Tubing IV Secondary IV ONE (15:54)
[2019-07-09] MEDS ORDERED: NS 275ml ONE (15:54)
--- NOTE | 2019-07-09 19:30 | Operative Note - Dictated ---
DATE OF OPERATION: 07/09/2019 PREOPERATIVE DIAGNOSIS: Gallstone pancreatitis. POSTOPERATIVE DIAGNOSIS: Gallstone pancreatitis. OPERATION: 1. Laparoscopy cholecystectomy. 2. Lysis of the adhesion. COMPLICATIONS: None. SURGEON: Rio Mcmillan MD. SOUND ENGINEER AUDIO CONTROL: None. ANESTHESIA: General with endotracheal tube. ANESTHESIOLOGIST: Jacoby Leslie MD. INDICATION: This is a 38-year-old female, who presented to emergency room with abdominal pain for about 4 or 5 days. This pain was associated with nausea and vomiting and physical examination showed severe tenderness at the epigastrium. Workup showed that the patient had gallstone pancreatitis. She was admitted to hospital and was started on conservative treatment. Yesterday, she underwent ERCP and multiple common bile duct stones were removed and today, she is scheduled for laparoscopic cholecystectomy. At the present time, the lipase and amylase are normal, and bilirubin total is 0.9. DESCRIPTION OF PROCEDURE: The patient was placed supine on the operating table. After general anesthesia with endotracheal tube, the abdomen was properly prepped and draped. A small incision was given below the umbilicus through which a Veress needle was introduced into the intraperitoneal cavity. This cavity was insufflated up to 15 mmHg. The Veress needle was removed and a 5 mm trocar was placed in the intraperitoneal cavity through the incision below the umbilicus. The laparoscope and camera were introduced into the intraperitoneal cavity through the trocar below the umbilicus. Under direct vision, a working trocar was placed at the epigastrium and 5 mm trocars were placed at right upper quadrant and right flank. Initially, a rapid exploration was performed, which showed diaphragm to be normal. The part of the stomach, which could be seen was normal. Liver was normal. Gallbladder showed signs of chronic cholecystitis and was covered with omentum. The bowels were covered with omentum and there was some turbid fluid in the abdomen. The fundus of the gallbladder was grasped with a grasper from the trocar site at the right flank and the fundus was retracted cephalad and lateral. The adhesion of the omentum over the gallbladder was released with the help of the blunt dissection and Bovie, and full length of the gallbladder was exposed. The neck of the gallbladder was grasped with another grasper and Calot triangle was exposed. The patient had some edema in this area. Blunt dissection was performed. Finally, the cystic duct was identified and isolated. This duct was doubly ligated with Hemoclip and was transected. After this, further dissection was performed. Cystic artery was ligated and transected. After that, the gallbladder was gradually released from the gallbladder bed from the neck toward the fundus. The gallbladder was completely released from the gallbladder bed and it was removed from the intraperitoneal cavity through the incision in the epigastrium. To accumulate the size of the gallbladder and the stones, we had to extend the incision in the epigastrium. After removal of the gallbladder, the gallbladder bed was completely cauterized with the help of the Bovie. The right upper quadrant cavity was irrigated with antibiotic solution and the fluid in the pelvis was aspirated. Another exploration was performed. There was no complication or bleeding. The procedure was terminated. The incision at the epigastrium was approximated with the help of the Endosuture with a suture of #0 Vicryl. The trocars were removed under direct vision. The incisions were infiltrated with total of 30 mL of Marcaine 0.25%. The subcutaneous tissue was approximated with 4-0 chromic and the skin incisions were approximated with running subcuticular suture of 4-0 chromic. The patient tolerated the procedure very well and was transferred to recovery room in stable condition and extubated. COUNTS: The sponge and needle count were correct. ESTIMATED BLOOD LOSS: 30 mL. CONDITION: Condition of the patient at the end of procedure was stable. Rio Mcmillan M.D. DR: Alon JOB#: [id number] CC:
[2019-07-10] VITALS: BP 122/82
[2019-07-10] MEDS: HYDROmorphone 1mg/ml Carpuject IVP PRN (01:44)
[2019-07-10] MEDS: D5 1/2NS w/KCl 20mEq 1,000 ML IV SCH (03:00)
[2019-07-10 04:00] VITALS: BP 124/80
[2019-07-10] MEDS: Piperacillin/Tazobactam 3.375 GM in NS 110 ML IVPB SCH ×2 (04:38→13:01)
[2019-07-10 08:00] VITALS: BP 125/83
[2019-07-10] MEDS ORDERED: Hydromorphone 0.5mg/0.5ml inj IVP PRN (08:20)
[2019-07-10] MEDS ORDERED: HYDROmorphone 1mg/ml Carpuject IVP PRN (08:20)
[2019-07-10] MEDS: Pantoprazole Inj IVP SCH (08:48)
[2019-07-10 08:52] LABS: BASOPHILS % (AUTO) 0.6 % (0.0-2.0); EOSINOPHILS % (AUTO) 1.6 % (0.0-3.0); HEMATOCRIT 30.9 % (37.0-47.0); LYMPHOCYTES % (AUTO) 15.8 % (20.0-45.0); MEAN CORPUSCULAR VOLUME 89 FL (80-99); MONOCYTES % (AUTO) 6.8 % (1.0-10.0); NEUTROPHILS % (AUTO) 75.3 % (45.0-75.0); PLATELET COUNT 157 K/UL (150-450); RED BLOOD COUNT 3.48 M/UL (4.20-5.40); RED CELL DISTRIBUTION WIDTH 11.1 % (11.6-14.8); WHITE BLOOD COUNT 8.4 K/UL (4.8-10.8)
--- NOTE | 2019-07-10 08:52 | General Progress Note ---
Assessment/Plan Status: unchanged Assessment/Plan: gallstone pancreatitis CBD stones based on CT ivf pain control s/p ERCP and 8 stones removal s/p surg fu surg recs Subjective Allergies: Coded Allergies: No Known Allergies (Unverified , 07/06/19) Objective Last 24 Hour Vital Signs Date Time Temp Pulse Resp B/P (MAP) Pulse Ox O2 Delivery O2 Flow Rate FiO2 07/10/19 04:00 98.2 72 20 124/80 (95) 100 07/10/19 00:00 98.9 67 20 122/82 (95) 100 07/09/19 21:00 Nasal Cannula 2.0 07/09/19 20:00 100.0 79 20 119/89 (99) 98 07/09/19 16:00 97.9 74 20 134/86 (102) 100 07/09/19 14:45 97.9 75 18 125/81 (96) 98 07/09/19 14:15 98.2 88 19 109/79 100 Nasal Cannula 3 07/09/19 14:11 98.2 07/09/19 14:11 98.2 07/09/19 14:05 69 15 112/71 100 Nasal Cannula 3 07/09/19 13:40 74 20 121/75 100 Simple Mask 6 07/09/19 13:40 76 20 98 07/09/19 13:30 85 20 120/77 100 Simple Mask 6 07/09/19 13:20 74 19 112/72 100 Simple Mask 6 07/09/19 13:18 76 20 99 07/09/19 13:15 74 18 110/69 100 Simple Mask 6 07/09/19 13:12 97.5 81 24 115/68 100 Simple Mask 6 07/09/19 09:00 Room Air Intake and Output 07/09/19 07/10/19 19:00 07:00 Intake Total 1527.5 ml 1365.0 ml Output Total 50 ml Balance 1477.5 ml 1365.0 ml Intake Oral 0 ml IV Total 1527.5 ml 1365.0 ml Estimated Blood Loss 50 ml # Voids 4 6 Laboratory Tests 07/10/19 08:27: White Blood Count [Pending], Red Blood Count [Pending], Hemoglobin [Pending], Hematocrit [Pending], Mean Corpuscular Volume [Pending], Mean Corpuscular Hemoglobin [Pending], Mean Corpuscular Hemoglobin Concent [Pending], Red Cell Distribution Width [Pending], Platelet Count [Pending], Mean Platelet Volume [ Pending], Neutrophils (%) (Auto) [Pending], Lymphocytes (%) (Auto) [Pending], Monocytes (%) (Auto) [Pending], Eosinophils (%) (Auto) [Pending], Basophils (%) (Auto) [Pending], Sodium Level [Pending], Potassium Level [Pending], Chloride Level [Pending], Carbon Dioxide Level [Pending], Blood Urea Nitrogen [Pending], Creatinine [Pending], Estimat Glomerular Filtration Rate [Pending], Glucose Level [Pending], Calcium Level [Pending], Total Bilirubin [Pending], Aspartate Amino Transf (AST/SGOT) [Pending], Alanine Aminotransferase (ALT/SGPT) [Pending] , Alkaline Phosphatase [Pending], Total Protein [Pending], Albumin [Pending], Globulin [Pending], Amylase Level [Pending], Lipase [Pending] Height (Feet): 4 Height (Inches): 10.00 Weight (Pounds): 132 General Appearance: no apparent distress EENT: normal ENT inspection Neck: supple Cardiovascular: normal rate Respiratory/Chest: decreased breath sounds Abdomen: soft, other - post surg Extremities: non-tender Jus Cancino MD July 10, 2019 08:52
[2019-07-10] MEDS ORDERED: Pantoprazole Inj IVP SCH (09:00)
--- NOTE | 2019-07-10 09:11 | General Progress Note ---
Assessment/Plan Problem List: (1) Abdominal pain ICD Codes: R10.9 - Unspecified abdominal pain SNOMED: 41644135 (2) UTI (urinary tract infection) ICD Codes: N39.0 - Urinary tract infection, site not specified SNOMED: 06631364 (3) Nausea & vomiting ICD Codes: R11.2 - Nausea with vomiting, unspecified SNOMED: 38461399 (4) Gallstone pancreatitis ICD Codes: K85.10 - Biliary acute pancreatitis without necrosis or infection SNOMED: 74589426 Status: unchanged Assessment/Plan: gi sx f/u abx pain control cbc bmp am Subjective Allergies: Coded Allergies: No Known Allergies (Unverified , 07/06/19) All Systems: reviewed and negative except above Subjective calm in bed no bm yet Objective Last 24 Hour Vital Signs Date Time Temp Pulse Resp B/P (MAP) Pulse Ox O2 Delivery O2 Flow Rate FiO2 07/10/19 04:00 98.2 72 20 124/80 (95) 100 07/10/19 00:00 98.9 67 20 122/82 (95) 100 07/09/19 21:00 Nasal Cannula 2.0 07/09/19 20:00 100.0 79 20 119/89 (99) 98 07/09/19 16:00 97.9 74 20 134/86 (102) 100 07/09/19 14:45 97.9 75 18 125/81 (96) 98 07/09/19 14:15 98.2 88 19 109/79 100 Nasal Cannula 3 07/09/19 14:11 98.2 07/09/19 14:11 98.2 07/09/19 14:05 69 15 112/71 100 Nasal Cannula 3 07/09/19 13:40 74 20 121/75 100 Simple Mask 6 07/09/19 13:40 76 20 98 07/09/19 13:30 85 20 120/77 100 Simple Mask 6 07/09/19 13:20 74 19 112/72 100 Simple Mask 6 07/09/19 13:18 76 20 99 07/09/19 13:15 74 18 110/69 100 Simple Mask 6 07/09/19 13:12 97.5 81 24 115/68 100 Simple Mask 6 Intake and Output 07/09/19 07/10/19 19:00 07:00 Intake Total 1527.5 ml 1365.0 ml Output Total 50 ml Balance 1477.5 ml 1365.0 ml Intake Oral 0 ml IV Total 1527.5 ml 1365.0 ml Estimated Blood Loss 50 ml # Voids 4 6 Laboratory Tests 07/10/19 08:27: White Blood Count 8.4, Red Blood Count 3.48L, Hemoglobin 11.0L, Hematocrit 30.9L , Mean Corpuscular Volume 89, Mean Corpuscular Hemoglobin 31.6H, Mean Corpuscular Hemoglobin Concent 35.6, Red Cell Distribution Width 11.1L, Platelet Count 157, Mean Platelet Volume 7.2, Neutrophils (%) (Auto) 75.3H, Lymphocytes (%) (Auto) 15.8L, Monocytes (%) (Auto) 6.8, Eosinophils (%) (Auto) 1.6, Basophils (%) (Auto) 0.6, Sodium Level [Pending], Potassium Level [Pending] , Chloride Level [Pending], Carbon Dioxide Level [Pending], Blood Urea Nitrogen [Pending], Creatinine [Pending], Estimat Glomerular Filtration Rate [Pending], Glucose Level [Pending], Calcium Level [Pending], Total Bilirubin [Pending], Aspartate Amino Transf (AST/SGOT) [Pending], Alanine Aminotransferase (ALT/SGPT ) [Pending], Alkaline Phosphatase [Pending], Total Protein [Pending], Albumin [ Pending], Globulin [Pending], Amylase Level [Pending], Lipase [Pending] Height (Feet): 4 Height (Inches): 10.00 Weight (Pounds): 132 General Appearance: lethargic EENT: normal ENT inspection Neck: normal alignment Cardiovascular: normal peripheral pulses, normal rate, regular rhythm Respiratory/Chest: chest wall non-tender, lungs clear, normal breath sounds Abdomen: soft, hypoactive bowel sounds Extremities: normal inspection Edema: no edema noted Arm (L), no edema noted Arm (R), no edema noted Leg (L), no edema noted Leg (R), no edema noted Pedal (L), no edema noted Pedal (R), no edema noted Generalized Neurologic: motor weakness Skin: normal pigmentation MonteroAnderson Maria GCarla DO July 10, 2019 09:11
[2019-07-10 09:15] LABS: AMYLASE 51 U/L (25-115)
[2019-07-10 09:23] LABS: ALANINE AMINOTRANSFERASE 99 U/L (12-78); ALBUMIN 2.8 G/DL (3.4-5.0); ALBUMIN/GLOBULIN RATIO 0.7 (1.0-2.7); ALKALINE PHOSPHATASE 90 U/L (46-116); ANION GAP 7 mmol/L (5-15); ASPARTATE AMINO TRANSFERASE 52 U/L (15-37); BILIRUBIN,TOTAL 0.9 MG/DL (0.2-1.0); BLOOD UREA NITROGEN 2 mg/dL (7-18); CALCIUM 8.4 MG/DL (8.5-10.1); CARBON DIOXIDE 29 MMOL/L (21-32); CHLORIDE 105 MMOL/L (98-107); CREATININE 0.5 MG/DL (0.55-1.30); POTASSIUM 3.6 MMOL/L (3.5-5.1); SODIUM 140 MMOL/L (136-145)
--- NOTE | 2019-07-10 10:27 | General Surgery Progress Note ---
General Surgery-Progress Note Subjective Procedure Performed lap belinda Symptoms: improved Objective Last 24 Hour Vital Signs Date Time Temp Pulse Resp B/P (MAP) Pulse Ox O2 Delivery O2 Flow Rate FiO2 07/10/19 09:20 98.2 07/10/19 09:00 Room Air 07/10/19 08:00 98.6 81 20 125/83 (97) 99 07/10/19 04:00 98.2 72 20 124/80 (95) 100 07/10/19 00:00 98.9 67 20 122/82 (95) 100 07/09/19 21:00 Nasal Cannula 2.0 07/09/19 20:00 100.0 79 20 119/89 (99) 98 07/09/19 16:00 97.9 74 20 134/86 (102) 100 07/09/19 14:45 97.9 75 18 125/81 (96) 98 07/09/19 14:15 98.2 88 19 109/79 100 Nasal Cannula 3 07/09/19 14:11 98.2 07/09/19 14:11 98.2 07/09/19 14:05 69 15 112/71 100 Nasal Cannula 3 07/09/19 13:40 74 20 121/75 100 Simple Mask 6 07/09/19 13:40 76 20 98 07/09/19 13:30 85 20 120/77 100 Simple Mask 6 07/09/19 13:20 74 19 112/72 100 Simple Mask 6 07/09/19 13:18 76 20 99 07/09/19 13:15 74 18 110/69 100 Simple Mask 6 07/09/19 13:12 97.5 81 24 115/68 100 Simple Mask 6 I&O Intake and Output 07/09/19 07/10/19 19:00 07:00 Intake Total 1527.5 ml 1365.0 ml Output Total 50 ml Balance 1477.5 ml 1365.0 ml Intake Oral 0 ml IV Total 1527.5 ml 1365.0 ml Estimated Blood Loss 50 ml # Voids 4 6 Respiratory: clear Abdomen: soft, flat, non-tender, present bowel sounds Extremities: no tenderness Laboratory Tests Test 07/10/19 08:27 White Blood Count 8.4 K/UL (4.8-10.8) Red Blood Count 3.48 M/UL (4.20-5.40) L Hemoglobin 11.0 G/DL (12.0-16.0) L Hematocrit 30.9 % (37.0-47.0) L Mean Corpuscular Volume 89 FL (80-99) Mean Corpuscular Hemoglobin 31.6 PG (27.0-31.0) H Mean Corpuscular Hemoglobin Concent 35.6 G/DL (32.0-36.0) Red Cell Distribution Width 11.1 % (11.6-14.8) L Platelet Count 157 K/UL (150-450) Mean Platelet Volume 7.2 FL (6.5-10.1) Neutrophils (%) (Auto) 75.3 % (45.0-75.0) H Lymphocytes (%) (Auto) 15.8 % (20.0-45.0) L Monocytes (%) (Auto) 6.8 % (1.0-10.0) Eosinophils (%) (Auto) 1.6 % (0.0-3.0) Basophils (%) (Auto) 0.6 % (0.0-2.0) Sodium Level 140 MMOL/L (136-145) Potassium Level 3.6 MMOL/L (3.5-5.1) Chloride Level 105 MMOL/L (98-107) Carbon Dioxide Level 29 MMOL/L (21-32) Anion Gap 7 mmol/L (5-15) Blood Urea Nitrogen 2 mg/dL (7-18) L Creatinine 0.5 MG/DL (0.55-1.30) L Estimat Glomerular Filtration Rate > 60 mL/min (>60) Glucose Level 136 MG/DL (74-106) H Calcium Level 8.4 MG/DL (8.5-10.1) L Total Bilirubin 0.9 MG/DL (0.2-1.0) Aspartate Amino Transf (AST/SGOT) 52 U/L (15-37) H Alanine Aminotransferase (ALT/SGPT) 99 U/L (12-78) H Alkaline Phosphatase 90 U/L (46-116) Total Protein 7.1 G/DL (6.4-8.2) Albumin 2.8 G/DL (3.4-5.0) L Globulin 4.3 g/dL Albumin/Globulin Ratio 0.7 (1.0-2.7) L Amylase Level 51 U/L (25-115) Lipase 76 U/L (73-393) Assessment Additional Comments gallstone pancreatitis Plan Additional Comments discharge to home Rio Mcmillan MD July 10, 2019 10:27
--- NOTE | 2019-07-10 10:29 | Discharge Instructions ---
Discharge Instructions Discharge Instructions Follow up with: my office in one week Diet: full liquid Additional Diet Information: regular no fat as of tomorrow Resume Normal Activity?: Yes Activity: as tolerated For Surgical Patients Dressing Care: other - leave dressing alone May shower: Yes For Congestive Heart Failure Reminder Report to your physician any weight gain of 5 pounds or more in one week. Rio Mcmillan MD July 10, 2019 10:29
[2019-07-10 12:00] VITALS: BP 116/72
--- NOTE | 2019-07-11 10:50 | Discharge Summary ---
Discharge Summary Discharge Summary _ DATE OF ADMISSION: 07/06/2019 DATE OF DISCHARGE: 07/10/2019 DISCHARGED BY: Dr Montero REASON FOR ADMISSION: 38 years old female with past medical history of kidney stones, presented to emergency department for evaluation of abdominal pain. Patient reported mid-abdominal , sharp ,nonradiating, 10 out of 10 abdominal pain associated with multiple episodes of nonbloody vomiting. She denied fever and chills. She denied chest pain. Patient reported history of kidney stones. She denied dysuria or hematuria. She denied flank pain. Upon evaluation vital signs were stable. Laboratory work-up revealed significant leukocytosis WBC 23.6, stable hemoglobin , hematocrit and platelet count. Potassium 2.9. Glucose 173. Stable renal parameters. AST 109, ALT 83, total bilirubin 1.0. Lipase over 1999. Urine test was negative. Urinalysis revealed +2 protein ,+1 leukocyte esterase ,hematuria ,pyuria and many bacteria. CT of the abdomen pelvis revealed enlarged pancreas with prominent peripancreatic fluid concerning for pancreatitis. Possible gallstone pancreatitis. No fluid collection or pseudocyst. Distended gallbladder with cholelithiasis. Biliary dilatation with stones in the common bile duct. In emergency department patient received IV fluids, analgesics, started on empiric antibiotic and admitted for gallstone pancreatitis. CONSULTANTS: ID specialist Dr. Sr GI specialist Dr[facility]ancino [facility]SE: Patient admitted to medical surgical floor. Patient was kept n.p.o. and started on IV fluids and empiric antibiotic as per ID specialist recommendation. Pain management was addressed. Abdominal ultrasound revealed enlarged pancreas with peripancreatic fluid , concerning for acute pancreatitis. Cholelithiasis within a distended gallbladder. Mild gallbladder wall thickening and pericholecystic edema , concerning for acute cholecystitis Dilated common bile duct measuring 10.3 mm. Stone in the common bile duct measuring 1 cm. Ascites in the right upper quadrant. Patient subsequently undergone on 07/07 ERCP with sphincterotomy and stones removal. About 8 common bile duct stones were removed. Patient tolerated procedure well. The next day, on 07/08, patient undergone laparoscopic cholecystectomy with lysis of adhesion. Patient tolerated surgery well. Pathology of gallbladder and stones revealed chronic cholecystitis and cholelithiasis. Antibiotic continued as per ID specialist recommendation. Urine culture revealed E. coli. Blood culture were negative. Leukocytosis resolved. Intermittent low-grade fever resolved. Patient completed antibiotic while in the hospital. Pain management was addressed. Antiemetic provided as needed. Patient gradually started on diet and was advanced as tolerated. Patient was able to tolerate diet. Hypokalemia was treated. Prior to discharge potassium 3.6. Lipase down to 76 prior to discharge LFT trending down: AST from initial 109 down to 62 , ALT ,still remains elevated. Total bilirubin 0.9. Patient clinically stabilized and was ready for discharge home. FINAL DIAGNOSES: Gallstone pancreatitis Acute cholecystitis Choledocholithiasis Status post ERCP with sphincterotomy and common bile duct stones removal Status post laparoscopic cholecystectomy DISCHARGE MEDICATIONS: Please refer to Medication Reconciliation list. DISCHARGE INSTRUCTIONS: Patient was discharged home . Follow-up with a primary care provider in 1 week. I have been assigned to dictate discharge summary for this account. I was not involved in the patient's management. Phyllis Castro NP July 11, 2019 10:50
== END 2019-07-10 15:00 | disposition home or self-care (01) | DRG 263 ==
LOC: EMR 10:01 → EDBEDREQ 12:26 → 3E 17:05
PROC: 0FC98ZZ Extirpation of Matter from Common Bile Duct, Via Natural or Artificial Opening Endoscopic (ICD-10-PCS; principal; 2019-07-08 09:19)
PROC: 0FT44ZZ Resection of Gallbladder, Percutaneous Endoscopic Approach (ICD-10-PCS; 2019-07-09)
DX: K85.10 Biliary acute pancreatitis without necrosis or infection (principal); N39.0 Urinary tract infection, site not specified; E46 Unspecified protein-calorie malnutrition; Z68.24 Body mass index [BMI] 24.0-24.9, adult; K80.46 Calculus of bile duct with acute and chronic cholecystitis without obstruction
CPT/HCPCS: 36415; 74177; 74328; 76000; 76700; 80053; 81003; 81025; 82150; 83690; 84703; 85007; 85025; 85610; 85730; 87040; 87086; 87181; 94003; 94150; 96365; 96367; 96375; 96376; 99285; J2250; J2405; J2710; J7030